=== PATIENT | female | born 1945 | race Caucasian/White ===

== ENCOUNTER 2017-02-18 01:55 | Observation (INO) | payer MEDICARE, OTHER ==
[~2017-02-18] VITALS: Ht 162.6 cm; Wt 69.9 kg
[2017-02-18 02:51] LABS: ALBUMIN 3.7 g/dL (3.4-5.0); ALKALINE PHOSPHATASE 92 U/L (46-116); ALT (SGPT) 24 U/L (10-68); BILIRUBIN - TOTAL 0.27 mg/dL (0.2-1.3); CALC OSMOLALITY 289 mosm/kg (275-300); CALCIUM 8.6 mg/dL (8.5-10.1); CHLORIDE - SERUM 104 mmol/L (98-107); CREATININE - SERUM 1.8 mg/dL (0.6-1.3); GLUCOSE 106 mg/dL (74-106); POTASSIUM - SERUM 3.5 mmol/L (3.5-5.1); PROTEIN - SERUM 7.3 g/dL (6.4-8.2); SODIUM 143 mmol/L (136-145); UREA NITROGEN 26 mg/dL (7-18); eGFR NON AFRICAN AMERICAN 29 mL/min (90-120)
[2017-02-18 02:56] LABS: BASOPHILS 0.4 % (0-2); EOSINOPHILS 0.7 % (0-7); HEMATOCRIT 39.3 % (36.0-48.0); HEMOGLOBIN 12.9 g/dL (12-16); IMMATURE GRANULOCYTES 0.3 % (0-5); LYMPHOCYTES 14.6 % (15-50); MCH 28.8 pg (26.0-34.0); MCHC 32.8 g/dL (31.0-37.0); MCV 87.7 fL (80.0-100.0); MEAN PLATELET VOLUME 10.2 fL (7.4-10.4); MONOCYTES 13.8 % (2-11); NEUTROPHILS 70.2 % (40-80); PLATELET COUNT 189 10x3/uL (130-400); RBC 4.48 10x6/uL (4.00-5.40); WBC 6.7 10x3/uL (4.8-10.8)
[2017-02-18 02:58] LABS: PRO BNP 167 pg/mL (0-125); TROPONIN-I < 0.017 ng/mL (0.000-0.060)
[2017-02-18 04:00] VITALS: BP 133/58
[2017-02-18] MEDS ORDERED: PRAVACHOL80 MG PO (04:32)
[2017-02-18] MEDS ORDERED: LEVOTHYROXINE75 MCG PO (04:33)
[2017-02-18] MEDS ORDERED: BUPROPION HCL75 MG PO (04:33)
[2017-02-18] MEDS ORDERED: PROTONIX40 MG PO (04:34)
[2017-02-18] MEDS ORDERED: NORVASC10 MG PO (04:35)
[2017-02-18] MEDS ORDERED: COZAAR100 MG PO (04:36)
[2017-02-18] MEDS ORDERED: MIRAPEX1 MG PO (04:37)
[2017-02-18] MEDS ORDERED: BAYER CHEWABLE81 MG PO (04:38)
[2017-02-18 05:31] VITALS: BP 129/53; BMI 26.5
[2017-02-18 09:37] VITALS: BP 134/58
[2017-02-18 11:59] VITALS: BP 132/60
[2017-02-18 16:12] VITALS: BP 151/52
[2017-02-18 20:00] VITALS: BP 134/49
[2017-02-19] VITALS: BP 148/58
[2017-02-19 04:00] VITALS: BP 159/59
[2017-02-19 08:09] VITALS: BP 141/54
[2017-02-19 12:03] VITALS: BP 129/55
[2017-02-19 14:37] VITALS: Ht 162.6 cm; Wt 69.9 kg
[2017-02-19] MEDS ORDERED: STERAPRED DS 1010 MG PO (16:03)
[2017-02-19] MEDS ORDERED: GUAIFENESI100 MG/5 M PO (16:04)
[2017-02-19 16:10] VITALS: BP 126/59
== END 2017-02-19 19:24 | disposition home or self-care (01) ==
LOC: D.ER 01:55 → D.MS 03:38 → OBSVTIME 03:38 → D.MS 03:38
PROVIDERS: Family Medicine
DX: J44.1 Chronic obstructive pulmonary disease with (acute) exacerbation (principal); I10 Essential (primary) hypertension; K21.9 Gastro-esophageal reflux disease without esophagitis; G25.0 Essential tremor; E78.5 Hyperlipidemia, unspecified; F32.89 Other specified depressive episodes

== ENCOUNTER 2018-09-20 17:19 | Inpatient (IN) | payer MEDICARE, OTHER ==
[~2018-09-20] VITALS: Ht 162.6 cm; Wt 72.3 kg
[~2018-09-20 17:19] MED LIST: BAYER CHEWABLE81 MG PO; BUPROPION HCL75 MG PO; COZAAR100 MG PO; GUAIFENESI100 MG/5 M PO; LEVOTHYROXINE75 MCG PO; MIRAPEX1 MG PO; NORVASC10 MG PO; PRAVACHOL80 MG PO; PROTONIX40 MG PO; STERAPRED DS 1010 MG PO
[2018-09-20] MEDS ORDERED: BUPROPION HCL75 MG PO (17:25)
[2018-09-20] MEDS ORDERED: CHLORTHALIDONE50 MG PO (17:25)
--- NOTE | 2018-09-20 20:32 | NUR ---
PT TO RADIOLOGY.
[2018-09-20 20:42] LABS: BASOPHILS 0.4 % (0-2); EOSINOPHILS 1.1 % (0-7); HEMATOCRIT 34.5 % (36.0-48.0); HEMOGLOBIN 11.3 g/dL (12-16); IMMATURE GRANULOCYTES 0.3 % (0-5); LYMPHOCYTES 16.2 % (15-50); MCH 29.1 pg (26.0-34.0); MCHC 32.8 g/dL (31.0-37.0); MCV 88.9 fL (80.0-100.0); MEAN PLATELET VOLUME 9.7 fL (7.4-10.4); MONOCYTES 8.1 % (2-11); NEUTROPHILS 73.9 % (40-80); PLATELET COUNT 195 10x3/uL (130-400); RBC 3.88 10x6/uL (4.00-5.40); RDW 14.4 % (11.5-14.5); WBC 11.1 10x3/uL (4.8-10.8)
--- NOTE | 2018-09-20 20:46 | NUR ---
PT RETURNED FROM RADIOLOGY.
[2018-09-20 20:58] LABS: ALBUMIN 3.7 g/dL (3.4-5.0); ANION GAP 11.2 mmol/L (8-16); BILIRUBIN - TOTAL 0.5 mg/dL (0.2-1.3); CARBON DIOXIDE 27.5 mmol/L (21.0-32.0); CREATININE - SERUM 1.7 mg/dL (0.6-1.3); POTASSIUM - SERUM 3.7 mmol/L (3.5-5.1); PROTEIN - SERUM 6.8 g/dL (6.4-8.2)
[2018-09-20 21:06] LABS: APTT 25.5 SECONDS (22.8-39.4); INR 1.02 (0.85-1.17); PROTIME 12.9 SECONDS (11.6-15.0)
--- NOTE | 2018-09-20 21:35 | NUR ---
PT ASSISTED IN USING BEDPAN.
--- NOTE | 2018-09-20 22:48 | NUR ---
KNEE IMMOBILIZER PLACED ON PT'S LEFT KNEE. PT TOLERATED WELL.
--- NOTE | 2018-09-20 23:02 | NUR ---
PT GIVEN SANDWICH AND ICE WATER. DENIES ANY FURTHER NEEDS AT THIS TIME. WILL CONTINUE TO MONITOR.
[2018-09-20] MEDS ORDERED: HYDROCODONE-A1 UDTA2 PO (23:51)
[2018-09-20 23:53] VITALS: BP 138/63; Ht 162.6 cm; Wt 72.3 kg
--- NOTE | 2018-09-21 04:21 | NUR ---
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 AFTER ONE HOUR OF NO RELIEF WE CALL [facility] FOR DR MARTINEZ AND SHE DC'D THE MORPHINE BLOCKING MACHINE OPERATOR AND ORDERED DILAUDID IV EVERY 6 HRS. WHEN THIS WAS TOLD TO THE PATIENT SHE STATED THAT THE MORPHINE HAD FINALLY KICKED IN AND SHE WAS DOING BETTER AND DID NOT WANT TO CHANGE HER MEDS AT THIS TIME. WILL LET THE MD KNOW IN THE AM.
[2018-09-21 08:09] LABS: ALBUMIN 3.4 g/dL (3.4-5.0); ANION GAP 16.4 mmol/L (8-16); BILIRUBIN - TOTAL 0.73 mg/dL (0.2-1.3); CALCIUM 8.7 mg/dL (8.5-10.1); CARBON DIOXIDE 21.8 mmol/L (21.0-32.0); CREATININE - SERUM 1.4 mg/dL (0.6-1.3); POTASSIUM - SERUM 4.2 mmol/L (3.5-5.1); PROTEIN - SERUM 6.6 g/dL (6.4-8.2)
[2018-09-21 08:46] LABS: BASOPHILS 0.2 % (0-2); EOSINOPHILS 0.7 % (0-7); HEMATOCRIT 33.4 % (36.0-48.0); HEMOGLOBIN 10.9 g/dL (12-16); IMMATURE GRANULOCYTES 0.2 % (0-5); LYMPHOCYTES 15.5 % (15-50); MCH 28.8 pg (26.0-34.0); MCHC 32.6 g/dL (31.0-37.0); MCV 88.1 fL (80.0-100.0); MONOCYTES 10.7 % (2-11); NEUTROPHILS 72.7 % (40-80); PLATELET COUNT 192 10x3/uL (130-400); RBC 3.79 10x6/uL (4.00-5.40); RDW 14.3 % (11.5-14.5); WBC 8.9 10x3/uL (4.8-10.8)
[2018-09-21 10:25] VITALS: BP 129/50
[2018-09-21 13:14] VITALS: BP 124/48
[2018-09-21 17:32] VITALS: BP 120/50
--- NOTE | 2018-09-21 21:30 | NUR ---
RECEIVED PT FROM OR VIA STRETCHER. DROWSY. RESP EVEN AND NONLABORED. O2 @ 3LNC. BED ALARM ON FOR PT SAFETY. DRSG NOTED TO LLE WITH IMMOBILIZER IN USE. LT PEDAL PULSE WEAKER THATN RT. 1/2 NS @ 50 ML/HR INFUSINGIN RT WRIST. MORPHINE COIL BINDER IN USE. V/S STABLE. SR ELEVATED X2. CL IN REACH.
[2018-09-21 21:33] VITALS: BP 118/68
[2018-09-22 01:14] VITALS: BP 109/63
--- NOTE | 2018-09-22 02:00 | NUR ---
ASSISTED ONTO BEDPAN TO VOID. DOING WELL. USED RN FAMILY FOR C/O PAIN IN LLE. V/S STABLE. RESP EVEN AND NONLABORED. BED ALARM IN USE FOR PT SAFETY. CL IN REACH.
[2018-09-22 05:16] VITALS: BP 114/54
--- NOTE | 2018-09-22 05:58 | NUR ---
TOOK AM MEDS. TALKATIVE WITH STAFF. DENIES PAIN AT THIS TIME. NO DISTRESS. CL IN REACH.
[2018-09-22 06:59] LABS: BASOPHILS 0 % (0-2); EOSINOPHILS 0 % (0-7); HEMATOCRIT 31.3 % (36.0-48.0); HEMOGLOBIN 10.1 g/dL (12-16); IMMATURE GRANULOCYTES 0.2 % (0-5); LYMPHOCYTES 5.8 % (15-50); MCH 28.8 pg (26.0-34.0); MCHC 32.3 g/dL (31.0-37.0); MCV 89.2 fL (80.0-100.0); MEAN PLATELET VOLUME 10.2 fL (7.4-10.4); MONOCYTES 8.7 % (2-11); NEUTROPHILS 85.3 % (40-80); PLATELET COUNT 200 10x3/uL (130-400); RBC 3.51 10x6/uL (4.00-5.40); RDW 14.5 % (11.5-14.5); WBC 9.4 10x3/uL (4.8-10.8)
--- NOTE | 2018-09-22 07:01 | OP ---
PATIENT NAME: SETH MAXWELL MEDICAL RECORD: [id number] :43 LOCATION:D.MS [id number] ADMISSION DATE:09/20/18 SURGEON: SELVIN COLÓN DO DATE OF OPERATION: 09/21/2018 PROCEDURE PERFORMED: Left lateral tibial plateau open reduction internal fixation. PREOPERATIVE DIAGNOSIS: Displaced split depression of the left lateral tibial plateau. POSTOPERATIVE DIAGNOSIS: Displaced split depression of the left lateral tibial plateau. INDICATIONS: Ms. Maxwell is a 72-year-old female who was cleaning her ceiling fan from her bed. She slipped and fell and sustained a tibial plateau fracture. She was [facility] and she was aware of the risks of this including infection, bleeding, damage to nerves and vessels, failure of fixation, malunion, nonunion, and continued knee pain. She is also aware of the fact that she may most likely need a knee replacement due to the traumatic nature of this to the joint line. She was aware that as well as the risk of blood clots and even and signed the consent. SURGEON: Selvin Colón DO PROCEDURE: The patient was taken to the operative suite, laid in supine position, given general anesthetic and 2 grams of Ancef preoperatively. The left lower extremity was then prepped and draped in sterile fashion. Tourniquet was under the drapes. A timeout was performed and everyone was agreeance with the correct side, site, patient and procedure. The Esmarch was then used to exsanguinate the left lower extremity. The tourniquet was inflated to 350 mmHg, was up for 70 minutes. The incision then began over the lateral aspect of the tibia in a hockey stick type incision and careful dissection was made down to the IT band. The IT band was split and the tibia was cleaned off for a place for the plate. Reduction was made and tamp was used to tamp up the depressed part of the tibial plateau on the lateral side. Once this was completed, the plate was placed, and once he is in satisfactory position, AP and lateral screws were entered first a kickstand screw and then proximal screws and then more distal screws and the kickstand screw was replaced for a locking screw. This was confirmed to be in good position on AP and lateral x-ray. The tourniquet was then let down and bleeding was coagulated. The incision was then closed. The deep tissue, fascia was closed with #1 Vicryl in a [id number] fashion and then the skin was closed with 2-0 Vicryl in inverted interrupted fashion and ZipLine was placed on the knee. Adaptic, 4 x 4s, ABD, Webril, and Luis Angel wrap was then used to dress the wound. A EDDIE hose stocking up to the knee and the knee immobilizer placed on the patient. She was awakened and taken to recovery in stable condition. Blood loss approximately 100 mL. COMPLICATIONS: None. TRANSINT:[id number] Voice Confirmation ID: [id number] DOCUMENT ID: [id number] OPERATIVE REPORT [id number] SETH MAXWELL,SELVIN Madrigal DO at 0701 CC: [id number] DICTATION DATE: 09/21/182041 REGIONAL TANKER TRUCK DRIVER: 09/21/18 2315 ADM IN [facility] [address] [place] [address]
[2018-09-22 07:33] LABS: ALBUMIN 2.8 g/dL (3.4-5.0); ANION GAP 13.8 mmol/L (8-16); BILIRUBIN - TOTAL 0.61 mg/dL (0.2-1.3); CALCIUM 8.2 mg/dL (8.5-10.1); CARBON DIOXIDE 25.8 mmol/L (21.0-32.0); CREATININE - SERUM 1.5 mg/dL (0.6-1.3); POTASSIUM - SERUM 4.6 mmol/L (3.5-5.1)
--- NOTE | 2018-09-22 08:11 | NUR ---
PT RESTING IN BED. WATCHING TV. PAIN 2/10. ECONOMICS TEACHER EDUCATION DONE. NO S/S OF ACUTE DISTRESS. CL IN PLACE.
[2018-09-22 08:16] VITALS: BP 115/34
[2018-09-22 12:49] VITALS: BP 97/38
[2018-09-22 16:41] VITALS: BP 128/78
--- NOTE | 2018-09-22 18:18 | NUR ---
PT RESTING IN BED. CO OF PAIN 10/10. OXY 10 MG GIVEN FOR PAIN. NO S/S OF ACUTE DISTRESS. CL IN PLACE.
--- NOTE | 2018-09-22 18:19 | NUR ---
MEPILEX APPLIED TO L BUTTOCK. RED SMALL SCRATCHES NOTED. "I SCRATCHED MY BOTTOM".
--- NOTE | 2018-09-22 19:15 | NUR ---
PT ALERT AND ORIENTED WHEN ENTERING THE ROOM. LEFT LOWER LEG WITH CAST AND IMMOBILIZER. IN PLACE. PILLOW UNDER AND STABLIZED. STATES PAIN IS TOLERABLE AT THIS TIME. HAS LEFT WRIST IV THAT IS PATENT AND INFUSING 0.45 NS ORDERED. ASSISTED WITH BED CHOI. PT HAS TRAPEZE BAR AND USES WELL. DENIES FURTHER ISSUES. CPOC
[2018-09-22 20:00] VITALS: BP 116/42
[2018-09-23] VITALS: BP 102/48
--- NOTE | 2018-09-23 00:47 | NUR ---
SLIGHT INCREASE IN FEVER AT 99.4. PROVIDED INCENTIVE SPIROMETER PER DR. COLÓN STANDING ORDER. INSTRUCTED PATIENT TO USE SEVERAL TIMES WITHIN HOUR TO PROMOTE DEEP BREATHING AND DECREASE IN BODY TEMPERATURE. PATIENT PERFORMS FOR THIS NURSE AND DOES SO EFFECTIVELY.
--- NOTE | 2018-09-23 02:02 | NUR ---
PT TEMPERATURE NOW 98.9. INCENTIVE SPIROMETER REMAINS AT BEDSIDE AND ENCOURAGED PATIENT TO CONTINUE TO USE THROUGH OUT DAY TO PROMOTE FEVER PROPHYLAXIS. PATIENT VERBALIZES UNDERSTANDING.
--- NOTE | 2018-09-23 03:41 | NUR ---
I have reviewed this patient and I concur with the Shift Assessment completed by the Licensed Practical Nurse today this shift.
[2018-09-23 04:00] VITALS: BP 100/46
[2018-09-23 06:12] LABS: BASOPHILS 0.2 % (0-2); EOSINOPHILS 1.1 % (0-7); HEMATOCRIT 27.8 % (36.0-48.0); IMMATURE GRANULOCYTES 0.5 % (0-5); LYMPHOCYTES 13.9 % (15-50); MCH 28.9 pg (26.0-34.0); MCHC 32.4 g/dL (31.0-37.0); MCV 89.4 fL (80.0-100.0); MEAN PLATELET VOLUME 10.2 fL (7.4-10.4); MONOCYTES 11.2 % (2-11); NEUTROPHILS 73.1 % (40-80); PLATELET COUNT 182 10x3/uL (130-400); RBC 3.11 10x6/uL (4.00-5.40); RDW 14.4 % (11.5-14.5); WBC 9.7 10x3/uL (4.8-10.8)
[2018-09-23 06:45] LABS: ALBUMIN 2.6 g/dL (3.4-5.0); BILIRUBIN - TOTAL 0.48 mg/dL (0.2-1.3); CALCIUM 7.5 mg/dL (8.5-10.1); CARBON DIOXIDE 28.3 mmol/L (21.0-32.0); CREATININE - SERUM 1.4 mg/dL (0.6-1.3); PROTEIN - SERUM 5.7 g/dL (6.4-8.2)
[2018-09-23 06:48] LABS: ANION GAP 9.2 mmol/L (8-16); POTASSIUM - SERUM 3.5 mmol/L (3.5-5.1)
--- NOTE | 2018-09-23 07:45 | NUR ---
ALERT AND ORIENTED. LUNGS CLEAR BILATERALLY IN ALL MOLINA. HEART SOUNDS S1 AND S2 HEARD IN ALL MOLINA. BOWEL SOUNDS SLUGGISH X 4. IMMOBILIZER IN PLACE TO LLE. DENIES PAIN. DENIES NEEDS. BED LOW. FALL PRECAUTIONS IN PLACE. CALL ARENAS AND PERSONAL ITEMS INREACH. WILL CONTINUE TO MONITOR.
[2018-09-23 08:20] VITALS: BP 105/70
--- NOTE | 2018-09-23 08:31 | NUR ---
Unknown reason for wound consult. Pt is p/o L tibial ORIF (09/21) and is being managed by Ortho.
--- NOTE | 2018-09-23 09:46 | NUR ---
PT W NO BM IN 3 DAYS. REFUSED MIRALAX.
--- NOTE | 2018-09-23 10:21 | NUR ---
MEPILEX APPLIED TO LEFT OUTTER KNEE INCISION PER DRSG CHANGE ORDER. NICHOLAS WRAP APPLIED. NEW BRACE PLACED ON LLE PER ORDER.
[2018-09-23 12:31] LABS: % SATURATION 8 % (15-55); IRON 15 ug/dl (35-150); TOTAL IRON BIND CAPACITY 182 ug/dl (260-445); UNSAT IRON BIND CAPACITY 167 ug/dl (150-375)
--- NOTE | 2018-09-23 12:31 | NUR ---
EDUCATION PROVIDED ON NEED FOR URINE AND STOOL SAMPLE. VERBALIZED UNDERSTANDING. SUPPLIES IN ROOM.
[2018-09-23 12:39] VITALS: BP 108/46
--- NOTE | 2018-09-23 13:31 | NUR ---
PATIENT SLEEPING. WILL CONTINUE TO MONITOR.
--- NOTE | 2018-09-23 13:57 | NUR ---
Rehab Note- Acute Inpatient Rehab prescreen order received. Visited with the patient. She is in agreeance with [facility] Acute Inpatient Rehab prior to being discharged home. Will accept the patient to [facility] Acute Inpatient Rehab when medically stable and ready for discharge form the acute hospital. Spoke with MARY ANN Morgan. Thank you for this referral! Gabriela Ledesma RN Clinical Liaison, [facility] Rehab
--- NOTE | 2018-09-23 15:14 | NUR ---
PATIENT SLEEPING. WILL CONTINUE TO MONITOR.
[2018-09-23 15:58] LABS: APPEARANCE CLEAR (CLEAR); BILIRUBIN NEGATIVE (NEGATIVE); COLOR YELLOW (YELLOW); GLUCOSE NEGATIVE (NEGATIVE); KETONE NEGATIVE (NEGATIVE); NITRITE NEGATIVE (NEGATIVE); PROTEIN NEGATIVE (NEGATIVE); RED CELLS - URINE 0-5 /hpf (0-5); UROBILINOGEN NORMAL (NORMAL); WHITE CELLS - URINE OCC /hpf (0-5)
[2018-09-23 15:59] LABS: BACTERIA FEW /hpf (NONE SEEN)
[2018-09-23 17:15] VITALS: BP 135/52
--- NOTE | 2018-09-23 19:45 | NUR ---
PT SITTING UP IN BED WITHOUT DISTRESS, ALERT AND ORIENTED. IV LEFT WRIST INFUSING 1/2NS @ 50. LEFT LEG IN BRACE, DRESSING CDI. DENIES PAIN. FALL PRECAUTIONS IN PLACE, BED ALARM ON. DENIES NEEDS AT THIS TIME. CL IN REACH, WILL CTM
[2018-09-23 20:00] VITALS: BP 148/52
[2018-09-24] VITALS: BP 144/46
--- NOTE | 2018-09-24 01:40 | NUR ---
PT REQUESTED PAIN MEDICINE FOR "THROBBING" PAIN 8/10 IN LEFT LEG. GAVE OXY ORDERED. DENIES OTHER NEEDS. CL IN REACH, WILL CTM
[2018-09-24 04:00] VITALS: BP 137/71
--- NOTE | 2018-09-24 05:45 | NUR ---
ASSISTED PT ON AND OFF BEDPAN WITHOUT DIFFICULTY. PT ABLE TO LIFT BOTTOM UP BY SELF. DENIES PAIN OR NEEDS AT THIS TIME. CL IN REACH, WILL CTM
[2018-09-24 06:55] LABS: ALBUMIN 2.4 g/dL (3.4-5.0); ANION GAP 11.2 mmol/L (8-16); BILIRUBIN - TOTAL 0.63 mg/dL (0.2-1.3); CALCIUM 7.6 mg/dL (8.5-10.1); CREATININE - SERUM 1.4 mg/dL (0.6-1.3); POTASSIUM - SERUM 3.2 mmol/L (3.5-5.1); PROTEIN - SERUM 5.8 g/dL (6.4-8.2)
[2018-09-24 07:10] LABS: HEMATOCRIT 27.1 % (36.0-48.0); HEMOGLOBIN 9.3 g/dL (12-16); LYMPHOCYTES 16.3 % (15-50); MCH 30.4 pg (26.0-34.0); MCHC 34.3 g/dL (31.0-37.0); MCV 88.6 fL (80.0-100.0); MEAN PLATELET VOLUME 10.1 fL (7.4-10.4); NEUTROPHILS 73.2 % (40-80); PLATELET COUNT 196 10x3/uL (130-400); RBC 3.06 10x6/uL (4.00-5.40); RDW 13.6 % (11.5-14.5); WBC 8.5 10x3/uL (4.8-10.8)
--- NOTE | 2018-09-24 07:53 | NUR ---
ALERT AND ORIENTED. LUNGS CLEAR BILATERALLY IN ALL MOLINA. HEART SOUNDS S1 AND S2 HEARD IN ALL MOLINA. BOWEL SOUNDS ACTIVE X 4. SKIN INTACT WITHOUT REDNESS. DRSG INTACT WITH NICHOLAS WRAP TO LEFT LEG. BRACE IN PLACE TO LEFT LEG LOCKED AT 0/0. DENIES PAIN. DENIES NEEDS. BED LOW. FALL PRECAUTIONS IN PLACE. CALL ARENAS AND PERSONAL ITEMS IN REACH. WILL CONTINUE TO MONITOR.
[2018-09-24 08:48] VITALS: BP 112/64
[2018-09-24] MEDS ORDERED: ELIQUIS2.5 MG PO (08:57)
[2018-09-24] MEDS ORDERED: MIRALAX17 GM PO (08:58)
--- NOTE | 2018-09-24 09:40 | MORECARE ---
CASE MANAGEMENT DISCHARGE SUMMARY PATIENT: SETH MAXWELL UNIT: [id number] ADM DATE: 09/20/18 AGE: 72 : 44 SEX: F ROOM/BED: D.2211 AUTHOR: VANESSA DSOUZA PHYSICIAN: REFERRING PHYSICIAN: LUCIA MARTINEZ MD DATE OF SERVICE: 09/24/18 Discharge Plan Patient Name: SETH MAXWELL [facility] [facility] 1945 Planned Disposition: Inpatient Rehab Anticipated Discharge Date: Discharge Date: Expected LOS: Initial Reviewer: [email or web address] Initial Review Date: 09/20/2018 Generated: 09/24/18 10:40 am Patient Name: SETH MAXWELL Page [phone] at 0940 All edits/amendments must be made on the electronic document DICTATION DATE: 09/24/18938 WARP DYEING VAT TENDER: MIHAELA 09/24/18938 RPT#: [id number] DC DATE: STATUS: ADM IN [facility] [address] [place] [address] END OF REPORT
--- NOTE | 2018-09-24 09:48 | MORECARE ---
CASE MANAGEMENT DISCHARGE SUMMARY PATIENT: SETH MAXWELL UNIT: [id number] ADM DATE: 09/20/18 AGE: 72 : 44 SEX: F ROOM/BED: D.2211 AUTHOR: LIANNADOC PHYSICIAN: REFERRING PHYSICIAN: LUCIA MARTINEZ MD DATE OF SERVICE: 09/24/18 Discharge Plan Patient Name: SETH MAXWELL Facility: [facility]:[place] : 1945 Planned Disposition: Inpatient Rehab Anticipated Discharge Date: Discharge Date: Expected LOS: Initial Reviewer: [email or web address] Initial Review Date: 09/20/2018 Generated: 09/24/18 10:48 am Comments DCP- Discharge Planning Updated by [email or web address]: Darline Klein on 09/24/18 8:[address] Patient Name: SETH MAXWELL Admission Status: ER Accout number: [id number] Admission Date: 09-20-2018 : 1945 Admission Diagnosis: Attending: LUCIA MARTINEZ Current LOS: 4 Anticipated DC Date: Planned Disposition: Inpatient Rehab Primary Insurance: MEDICARE A & B Discharge Planning Comments: CM met with patient to complete initial dc planning assessment. CM educated patient on the CM role and verbal consent given by patient to complete assessment. Patient lives at home where she lives alone and states that she is independent with her care . At discharge patient plans to go to inpatient rehab at [facility] and feels this is a safe discharge. CM discussed availability of home health, rehab services, and medical equipment. She has a walker at home and a boot for her lymphedema. Patient denied known discharge needs at this time. IMM served and explained, copy given to her. CM will continue to follow and will assist as needed with dc plans/needs. Transplanter: Darline Klein DCPIA - Discharge Planning Initial Assessment Updated by [email or web address]: Darline Klein on 09/24/18 9:41 am * Is the patient Alert and Oriented? Yes * How many steps to enter\exit or inside your home? * PCP [facility] * Pharmacy [facility] * Preadmission Environment Home Alone * ADLs Independent * Equipment Rolling Walker * Other Equipment SIMMONS T FOR LYMPHEDEMA * Verbal permission to speak to the caregivers and representatives has been obtained from the patient. N/A * Community resources currently utilized None * Additional services required to return to the preadmission environment? Yes * Can the patient safely return to the preadmission environment? Yes * Has this patient been hospitalized within the prior 30 days at any hospital? No Coverage Notice Reviewer: [email or web address] Noah Gregorio Ernie Notice Issued Date-Time: 09/24/2018 9:35 Notice Type: IM Discharge Notice Notice Delivered To: Patient Relationship to Patient: Assistant Professor Of Biochemistry Name: Delivery Method: HAND - Hand Delivered Tova Days: Prior Verbal Notification: Recipient Understood Notice: Yes Recipient Signature: Yes Med Rec Note Co-signed by Attending: Coverage Notice Comment: Last DP export: 09/24/18 8:40 a Patient Name: SETH MAXWELL Page [phone] at 0948 All edits/amendments must be made on the electronic document DICTATION DATE: 09/24/18947 DAY CARE HOME MOTHER: MIHAELA 09/24/18947 RPT#: [id number] DC DATE: STATUS: ADM IN [facility] [address] [place] [address] END OF REPORT
--- NOTE | 2018-09-24 09:55 | NUR ---
RESTING IN BED. DENIES PAIN. DENIES NEEDS. WILL CONTIUE TO MONITOR.
--- NOTE | 2018-09-24 10:45 | NUR ---
DISCHARGE EDUCATION PROVIDED BOTH WRITTEN AND VERBAL. VERBALIZED UNDERSTANDING. DENIES FURTHER QUESTIONS. WAITING FOR BED IN INPATIENT REHAB. WILL CALL REPORT WHEN BED AVAILABLE.
--- NOTE | 2018-09-24 12:51 | NUR ---
REPORT CALLED TO AUTO BODY MECHANIC. DENIES FURTHER QUESTIONS. IV REMOVED FROM LFA WITH TIP INTACT. PATIENT DISCHARGED TO REHAB WITH ALL BELONGINGS.
== END 2018-09-24 14:12 | DRG 493 ==
LOC: D.ER 17:19 → D.MS 21:44 → D.SDCHOLD 09-23 08:48 → D.MS 09-23 08:50
PROVIDERS: Emergency Medicine; Family Medicine; Internal Medicine Nephrology; Orthopaedic Surgery; ADMIT Family Medicine; ATTEND Family Medicine
PROC: 0QSH04Z Reposition Left Tibia with Internal Fixation Device, Open Approach (ICD-10-PCS; principal; 2018-09-21 19:21)
DX: S82.142A Displaced bicondylar fracture of left tibia, initial encounter for closed fracture (principal); D62 Acute posthemorrhagic anemia; W06.XXXA Fall from bed, initial encounter; Y93.E9 Activity, other interior property and clothing maintenance; Y92.003 Bedroom of unspecified non-institutional (private) residence as the place of occurrence of the external cause; I10 Essential (primary) hypertension; I25.10 Atherosclerotic heart disease of native coronary artery without angina pectoris; J44.9 Chronic obstructive pulmonary disease, unspecified; K21.9 Gastro-esophageal reflux disease without esophagitis

== ENCOUNTER 2018-09-24 15:22 | Inpatient (IN) | payer MEDICARE, OTHER ==
[~2018-09-24] VITALS: Ht 162.6 cm; Wt 70.8 kg
[~2018-09-24 15:22] MED LIST changes: +CHLORTHALIDONE50 MG PO; +ELIQUIS2.5 MG PO; +HYDROCODONE-A1 UDTA2 PO; +MIRALAX17 GM PO
--- NOTE | 2018-09-24 17:00 | NUR ---
PT HAS BRACE FOR LLE. SHE HAS PEDAL PULSES X2. SHE IS ALERT AND ORIENTED. STATES SHE HURT HER RLE WHEN SHE WAS YOUNG AND HER FOOT TURNS IN DUE TO THAT ACCIDENT.
[2018-09-24 17:07] VITALS: BP 151/67; BMI 26.8
--- NOTE | 2018-09-24 20:10 | NUR ---
GREETED PATIENT AND INTRODUCED MYSELF. PATIENT IS LAYING IN BED WITH BRACE ON LEFT LEG AND LEG ELEVATED ON PILLOW. STATES THAT HER PAIN LEVEL IS STILL A 5/10. DENIES ANY FURTHER NEEDS AT THIS TIME. CALL LIGHT IN REACH.
[2018-09-24 21:10] VITALS: BP 134/56
--- NOTE | 2018-09-25 03:16 | NUR ---
PATIENT RESTING QUIETLY WITH EYES CLOSED. RESPIRATIONS EVEN. NO S/S OF DISTRESS. SR UP X2. BED IN LOWEST POSITION. CALL LIGHT IN REACH.
[2018-09-25 07:37] LABS: BASOPHILS 0.5 % (0-2); EOSINOPHILS 2.3 % (0-7); HEMATOCRIT 27.2 % (36.0-48.0); HEMOGLOBIN 9.2 g/dL (12-16); IMMATURE GRANULOCYTES 0.2 % (0-5); LYMPHOCYTES 15.5 % (15-50); MCH 29.6 pg (26.0-34.0); MCHC 33.8 g/dL (31.0-37.0); MCV 87.5 fL (80.0-100.0); MEAN PLATELET VOLUME 9.8 fL (7.4-10.4); MONOCYTES 10.2 % (2-11); NEUTROPHILS 71.3 % (40-80); PLATELET COUNT 242 10x3/uL (130-400); RBC 3.11 10x6/uL (4.00-5.40); RDW 14.2 % (11.5-14.5); WBC 8.3 10x3/uL (4.8-10.8)
[2018-09-25 07:42] VITALS: BP 121/51
--- NOTE | 2018-09-25 07:43 | NUR ---
ALERT AND ORIENTED. BREAKFAST SERVED. CL IN REACH.
[2018-09-25 07:58] LABS: ANION GAP 13.2 mmol/L (8-16); CALCIUM 7.9 mg/dL (8.5-10.1); CARBON DIOXIDE 26.4 mmol/L (21.0-32.0); CREATININE - SERUM 1.3 mg/dL (0.6-1.3); POTASSIUM - SERUM 3.6 mmol/L (3.5-5.1)
[2018-09-25 10:47] VITALS: Ht 162.6 cm; Wt 70.8 kg
--- NOTE | 2018-09-25 12:18 | NUR ---
RESTING IN BED. RESP EVEN ADN UNLABORED. CL IN REACH.
--- NOTE | 2018-09-25 13:26 | NUR ---
SHOWER TODAY PER OT.
--- NOTE | 2018-09-25 16:26 | NUR ---
NO CHANGE IN ASSESSMENT. NO C/O PAIN. CL IN REACH.
--- NOTE | 2018-09-25 19:55 | NUR ---
ASSISTED FROM WHEELCHAIR TO BED. CL IN REACH. PT PREFORMED ORAL CARE BEFORE BED. DENIES FURTHER NEEDS AT THIS TIME. BED IN LOW SIDE RAILS X2. LUNGS CLEAR. BOWEL ACTIVE X4. PT SITTING UP IN BED. WILL CONTINUE TO MONITOR.
[2018-09-25 20:58] VITALS: BP 127/47
--- NOTE | 2018-09-25 23:27 | NUR ---
I have reviewed this patient and I concur with the Shift Assessment completed by the Licensed Practical Nurse today this shift.
--- NOTE | 2018-09-26 01:31 | NUR ---
PT COMPLAINING OF BACK OF LEFT ANKLE HURTING AND THIS NURSE PUT A ICE PACK ON IT AND PROPED IT UP OFF THE BED WITH A PILLOW AND PT GIVEN PAIN PILL PER MAR. WILL CONTINUE TO MONITOR. CALL LIGHT IN REACH.
[2018-09-26 07:27] VITALS: BP 112/52
--- NOTE | 2018-09-26 08:15 | NUR ---
PT RESTING IN BED WITH EYES OPEN CALL LIGHT IN REACH NO PROBLEMS WILL MONITER
--- NOTE | 2018-09-26 11:55 | NUR ---
ASSISTED PATIENT TO BATHROOM USING WHEELCHAIR. PATIENT BACK TO BED AND REPOSITIONED FOR COMFORT. CALL LIGHT IN REACH.
--- NOTE | 2018-09-26 18:26 | NUR ---
I have reviewed this patient and I concur with the Shift Assessment completed by the Licensed Practical Nurse today this shift.
--- NOTE | 2018-09-26 18:36 | NUR ---
PT RESTING IN BED WITH EYES OPEN CALL LIGHT IN REACH NO PROBLEMS WILL MONITER
--- NOTE | 2018-09-26 19:38 | NUR ---
ASSISTED TO AND FROM BATHROOM BY WHEELCHAIR. CL IN REACH. A/O X4. RESP EVEN AND UNLABORED. LUNGS CLEAR. BOWEL ACTIVE X4. DENIES FURTHER NEEDS OR PAIN AT THIS TIME. BRACE ON LEFT KNEE INTACT. PT BACK IN BED. LEFT LEG ELEVATED ON PILLOW. WILL CONTINUE TO MONITOR.
[2018-09-26 20:38] VITALS: BP 130/58
--- NOTE | 2018-09-26 21:29 | NUR ---
ASSISTED TO THE BATHROOM AGAIN DUE TO UPSET STOMACH AND PASSING GAS. PT HAD LOOSE BM. PT ADMITS TO FEELING BETTER. PT BACK IN BED. DENIES FURTHER NEEDS. WCTM CL IN REACH
--- NOTE | 2018-09-26 22:28 | NUR ---
ASSISTED TO BATHROOM. PT STILL COMPLAINING OF LOOSE STOOLS. BM NOTED. PT ASSISTED BACK TO BED. CL IN REACH DENIES FURTHER NEEDS. WCTM
--- NOTE | 2018-09-26 23:04 | NUR ---
RECEIVED REPORT FROM OFFGOING NURSE ON PATIENTS CONDITION.
--- NOTE | 2018-09-26 23:10 | NUR ---
I have reviewed this patient and I concur with the Shift Assessment completed by the Licensed Practical Nurse today this shift.
--- NOTE | 2018-09-27 03:12 | NUR ---
PATIENT RESTING QUIETLY WITH EYES CLOSED. LEFT LEG ELEVATED ON PILLOW FOR COMFORT MEASURES. RESPIRATIONS EVEN. NO S/S OF DISTRESS. CALL LIGHT IN REACH.
[2018-09-27 07:29] LABS: BASOPHILS 0.4 % (0-2); EOSINOPHILS 1.8 % (0-7); HEMATOCRIT 29.5 % (36.0-48.0); HEMOGLOBIN 9.5 g/dL (12-16); IMMATURE GRANULOCYTES 0.4 % (0-5); LYMPHOCYTES 17.9 % (15-50); MCH 28.7 pg (26.0-34.0); MCHC 32.2 g/dL (31.0-37.0); MCV 89.1 fL (80.0-100.0); MEAN PLATELET VOLUME 9.6 fL (7.4-10.4); MONOCYTES 11.4 % (2-11); NEUTROPHILS 68.1 % (40-80); PLATELET COUNT 288 10x3/uL (130-400); RBC 3.31 10x6/uL (4.00-5.40); RDW 14.1 % (11.5-14.5); WBC 7.3 10x3/uL (4.8-10.8)
[2018-09-27 07:42] LABS: ANION GAP 13.9 mmol/L (8-16); CALCIUM 8.4 mg/dL (8.5-10.1); CARBON DIOXIDE 27.1 mmol/L (21.0-32.0); CREATININE - SERUM 1.5 mg/dL (0.6-1.3)
[2018-09-27 08:06] VITALS: BP 113/52
--- NOTE | 2018-09-27 10:34 | NUR ---
LAYING QUIETLY IN BED RESTING WITH EYES CLOSED. DENIES PAIN. CALL LIGHT IN REACH. BED IN LOWEST POSITION. SIDE RAILS UP X2.
--- NOTE | 2018-09-27 10:43 | NUR ---
NUTRITION F/U CHART REVIEWED, PT VISIT. REPORTS DRINKING ENSURE BID. 75% INTAKE RECENT MEALS ON REG DIET. WILL CONTINUE TO HONOR FOOD PREFERENCES, MONITOR PO INTAKE. RD FOLLOWING
--- NOTE | 2018-09-27 12:40 | NUR ---
SITTING UP IN BED EATING LUNCH. DENIES INCREASED PAIN TO LLE. HAS LEG BRACE IN PLACE. PEDAL PULSES X2 PRESENT. CALL LIGHT IN REACH, BED IN LOWEST POSITION, SIDE RAILS UP X2
--- NOTE | 2018-09-27 15:23 | NUR ---
PATIENT ADMITTED TO REHAB FROM ACUTE FLOOR. HER PCP IS DR. GENAO, DME AT HOME IS A WALKER. DISCHARGE PLANS ARE FOR PATIENT TO RETURN TO HER HOME WITH HOME HEALTH. WILL CONTINUE TO FOLLOW WITH PATIENT
--- NOTE | 2018-09-27 19:30 | NUR ---
BEDSIDE REPORT COMPLETE. SITTING UP IN BED WATCHING TV. DENIES ANY NEEDS OR PAIN. NO SIGNS OF DISTRESS NOTED. CALL LIGHT AND WATER WITHIN REACH, FALL PRECAUTIONS IN PLACE, BED WAIVER NOTED IN CHART. WILL CONTINUE TO MONITOR
[2018-09-27 21:19] VITALS: BP 140/56
--- NOTE | 2018-09-27 23:40 | NUR ---
QUIET HOURS. LYING IN BED SUPINE EYES CLOSED RESTING. RR EVEN AND UNLABORED. WILL CONTINUE TO MONITOR
--- NOTE | 2018-09-28 02:07 | NUR ---
ASSISTED TO RESTROOM WITH SBA. NO CONCERNS VOICED. DENIES ANY PAIN. WILL CONTINUE TO MONITOR
--- NOTE | 2018-09-28 04:50 | NUR ---
LYING IN BED SUPINE EYES CLOSED RESTING. RR EVEN AND UNLABORED. WILL CONTINUE TO MONITOR
[2018-09-28 08:00] VITALS: BP 128/59
--- NOTE | 2018-09-28 13:16 | NUR ---
LAYING IN BED WITH EYES CLOSED. NO S/S DISTRESS. CALL LIGHT IN REACH. LLE ELEVATED IN BED ON PILLOW
[2018-09-28 19:35] VITALS: BP 136/54
--- NOTE | 2018-09-28 19:40 | NUR ---
BEDSIDE REPORT COMPLETE. SITTING UP IN BED ALERT AND ORIENTED X4. C/O LEFT KNEE "STINGING" REMOVED DRESSING, INCISION ZIPTIED NO DRAINAGE, REDNESS OR SWELLING NOTED. IRRITATION ON INNER LEG FROM NICHOLAS WRAP. PT STATED AFTER REMOVING NICHOLAS WRAP KNEE FELT BETTER. WILL LEAVE OPEN TO AIR AND BRACE OFF FOR AN HOUR WHILE IN BED. CALL LIGHT AND WATER WITHIN REACH, FALL PRECAUTIONS IN PLACE, SIGNED BED ALARM WAIVER IN CHART. WILL CONTINUE TO [facility]
--- NOTE | 2018-09-29 00:51 | NUR ---
QUIET HOURS. LYING IN BED EYES CLOSED RESTING. NO SIGNS OF DISTRESS NOTED. WILL CONTINUE TO MONITOR
--- NOTE | 2018-09-29 01:20 | NUR ---
ASSISTED TO RESTROOM WITH SBA.
--- NOTE | 2018-09-29 03:41 | NUR ---
LYING IN BED SUPINE EYES CLOSED RESTING. NO SIGNS OF DISTRESS NOTED. WILL CONTINUE TO MONITOR
--- NOTE | 2018-09-29 06:27 | NUR ---
LYING IN BED WATCHING TV. DENIES ANY NEEDS OR PAIN. WILL CONTINUE TO MONITOR
[2018-09-29 07:30] VITALS: BP 123/52
--- NOTE | 2018-09-29 12:03 | NUR ---
RESTING QUIETLY IN BED. HAS BEEN UP TO BATHROOM BUT STATES HER NECK HURTS HER TODAY AND WANTED TO LAY BACK DOWN. LLE LEG BRACE IN IN PLACE. CALL LIGHT IN REACH
--- NOTE | 2018-09-29 18:33 | NUR ---
HAD SHOWER, NOW RESTING QUIETLY IN BED. APPETITE POOR AT PRESENT. HAD LARGE BM JUST NOW. LLE LEG BRACE IN PLACE. CALL LIGHT IN REACH.
--- NOTE | 2018-09-29 19:25 | NUR ---
BEDSIDE REPORT COMPLETE. SITTING UP IN BED WATCHING TV. DENIES ANY NEEDS OR PAIN. NO SIGNS OF DISTRESS NOTED. CALL LIGHT WITHIN REACH, FALL PRECAUTIONS IN PLACE. WILL CONTINUE TO MONITOR
[2018-09-29 20:05] VITALS: BP 137/40
--- NOTE | 2018-09-30 00:57 | NUR ---
QUIET HOURS. LYING IN BED SUPINE EYES CLOSED RESTING. NO SIGNS OF DISTRESS NOTED. WILL CONTINUE TO MONITOR
--- NOTE | 2018-09-30 02:57 | NUR ---
LYING IN BED EYES CLOSED RESTING. NO SIGNS OF DISTRESS NOTED. WILL CONTINUE TO MONITOR
--- NOTE | 2018-09-30 06:40 | NUR ---
LYING IN BED WATCHING TV. DENIES ANY NEEDS OR PAIN. NO SIGNS OF DISTRESS NOTED.
[2018-09-30 07:03] LABS: BASOPHILS 0.4 % (0-2); EOSINOPHILS 1.9 % (0-7); HEMATOCRIT 29.8 % (36.0-48.0); HEMOGLOBIN 9.6 g/dL (12-16); IMMATURE GRANULOCYTES 0.8 % (0-5); MCH 28.4 pg (26.0-34.0); MCHC 32.2 g/dL (31.0-37.0); MCV 88.2 fL (80.0-100.0); MEAN PLATELET VOLUME 9.4 fL (7.4-10.4); MONOCYTES 16.7 % (2-11); NEUTROPHILS 55.2 % (40-80); RBC 3.38 10x6/uL (4.00-5.40); RDW 13.9 % (11.5-14.5); WBC 5.2 10x3/uL (4.8-10.8)
[2018-09-30 07:06] LABS: PLATELET COUNT 372 10x3/uL (130-400)
[2018-09-30 07:11] LABS: ANION GAP 13.1 mmol/L (8-16); CALCIUM 9.1 mg/dL (8.5-10.1); CARBON DIOXIDE 28.8 mmol/L (21.0-32.0); CREATININE - SERUM 1.5 mg/dL (0.6-1.3); POTASSIUM - SERUM 3.9 mmol/L (3.5-5.1)
[2018-09-30 08:23] VITALS: BP 121/55
--- NOTE | 2018-09-30 18:03 | NUR ---
LAYING IN BED EATING SUPPER. STATES HER APPETITE IS BACK AND IS NOW HUNGRY. STILL WEARING LLE LEG BRACE. CALL LIGHT IN REACH
--- NOTE | 2018-09-30 20:45 | NUR ---
REST IN BED AND WATCH TV.
[2018-09-30 23:28] VITALS: BP 105/49
--- NOTE | 2018-10-01 01:34 | NUR ---
REST IN BED, CALL LIGHT IN REACH.
--- NOTE | 2018-10-01 04:03 | NUR ---
I have reviewed this patient and I concur with the Shift Assessment completed by the Licensed Practical Nurse today this shift.
--- NOTE | 2018-10-01 07:50 | NUR ---
PT AM MEDS ADMINISTERED. PT PRN ZOFRAN GIVEN AT THIS TIME. PT DENIES NEEDS. WCTM.
[2018-10-01 08:22] VITALS: BP 121/46
--- NOTE | 2018-10-01 17:45 | NUR ---
PT SITTING UP IN BED EATING DINNER, DENIES NEEDS. WCTM.
--- NOTE | 2018-10-01 19:40 | NUR ---
PT LYING IN BED. CL IN REACH. DENIES NEEDS AT THIS TIME. PT PREFORMING ROM WITH LEFT LEG IN BED. TOLERATING WELL. A/O X4. RESP EVEN AND UNLABORED. WCTM
[2018-10-01 20:17] VITALS: BP 104/57
--- NOTE | 2018-10-01 22:00 | NUR ---
ASSISTED TO AND FROM BATHROOM. PT BACK IN BED. CL IN REACH. DENIES FURTHER NEEDS. WCTM
[2018-10-02 06:41] LABS: BASOPHILS 0.3 % (0-2); EOSINOPHILS 1.6 % (0-7); HEMATOCRIT 29.9 % (36.0-48.0); HEMOGLOBIN 9.7 g/dL (12-16); IMMATURE GRANULOCYTES 2.1 % (0-5); MCH 28.8 pg (26.0-34.0); MCHC 32.4 g/dL (31.0-37.0); MCV 88.7 fL (80.0-100.0); MEAN PLATELET VOLUME 9.2 fL (7.4-10.4); PLATELET COUNT 371 10x3/uL (130-400); RBC 3.37 10x6/uL (4.00-5.40); RDW 13.9 % (11.5-14.5)
[2018-10-02 06:42] LABS: WBC 7.7 10x3/uL (4.8-10.8)
[2018-10-02 07:00] LABS: ANION GAP 10.4 mmol/L (8-16); CALCIUM 8.1 mg/dL (8.5-10.1); CARBON DIOXIDE 29.3 mmol/L (21.0-32.0); POTASSIUM - SERUM 3.7 mmol/L (3.5-5.1)
[2018-10-02 07:01] LABS: CREATININE - SERUM 1.9 mg/dL (0.6-1.3)
[2018-10-02 08:02] VITALS: BP 117/41
--- NOTE | 2018-10-02 08:15 | NUR ---
PATIENT IS ALERT/ORIENT. IN REHAB ROOM. WORKING WITH PHYSICAL THERAPIST. WILL CONTINUE WITH PLAN OF CARE
--- NOTE | 2018-10-02 10:59 | NUR ---
PATIENT IS A MIN ASST FROM WHEELCHAIR TO TOILET. PATIENT ABLE TO DO OWN NISREEN CARE
--- NOTE | 2018-10-02 11:41 | RHP ---
PATIENT: SETH MAXWELL MEDICAL RECORD: [id number] ACCOUNT: [id number] LOCATION:[facility] : 43 ADMISSION DATE: 09/24/18 REHABILITATION HISTORY AND PHYSICAL EXAMINATION POST ADMISSION PHYSICIAN EXAMINATION DATE OF ADMISSION: 09/24/2018. ADMITTING DIAGNOSIS: Under orthopedic classifications. HISTORY OF PRESENT ILLNESS: The patient is a 72-year-old female patient who presented to the ED while she was standing on her bed trying to remove a light fixture from the ceiling fan when she lost her balance, fell on the floor twisting her left knee. CT scan showed a highly comminuted fracture of her proximal tibia and depression and displacement of the lateral plateau. There was extension fracture in the tibial spines with displacement and also posterior aspect of the medial tibial plateau. Orthopedic was consulted. She underwent an ORIF of her left tibial plateau on 09/21/2018. She has got a history of hypertension, COPD, chronic constipation and used to smoke. The patient is currently having increased pain and having pain medication adjustments during her stay. She is on IV antibiotic therapy and electrolyte protocol, acute blood loss anemia, impaired mobility, gait disturbance, debility, deconditioning, and self-care deficits. These are all barriers to her discharge home safely at this time. Lives at home alone, was independent with her mobility and ADLs prior to this. She is currently set up for max assist for ADLs and max assist to total assist for mobility secondary to increased pain. She would like to return home with some friends here from out of town that will assist her and have home health set up after her inpatient stay. COMORBIDITIES: Include acute fall at home, acute left tibial plateau fracture, status post left tibial plateau ORIF, acute blood loss anemia, hypertension, hard of hearing, COPD, acid reflux, chronic constipation, history of tobacco use. PAST MEDICAL HISTORY: Significant for neuropathy, tremors, has got hard of hearing, hypertension, coronary artery disease, COPD, acid reflux, constipation, and tobacco use in the past. PAST SURGICAL HISTORY: Includes gallbladder surgery, appendectomy, hysterectomy, and angioplasty with stents. ALLERGIES: PLAVIX AND SOME ANTIBIOTIC THAT SHE IS UNSURE OF AT THIS TIME. CURRENT MEDICATIONS: Include Cozaar 100 mg daily. She is on Chlorthalidone 50 mg daily. She is on aspirin chewable 81 mg daily, Norvasc 10 mg daily, Protonix 40 mg daily, Synthroid 75 mcg daily, Pravachol 80 mg q.h.s., Mirapex 3 mg q.h.s., polyethylene glycol 17 grams in 8 ounces of water daily, Wellbutrin 75 b.i.d., Eliquis 2.5 mg b.i.d., [place] 7.5 one tab every 4 hours p.r.n., and MiraLax 17 grams in 8 ounces of water daily. HABITS: No current alcohol or tobacco use. She does have a history of tobacco use in the past. FAMILY HISTORY: Noncontributory. HISTORY AND PHYSICAL [id number] SETH MAXWELL SOCIAL HISTORY: Once again, the patient hopes to go home. She has got strong friend support to help her with this. REVIEW OF SYSTEMS: GENERAL: Does complain of some weakness and fatigue. HEENT: Denies cold, cough, or congestion. CARDIOVASCULAR: Denies chest pain. PHYSICAL EXAMINATION: VITAL SIGNS: Stable, afebrile. GENERAL: A well-developed female in no acute distress, alert upon exam. HEENT: Normocephalic and atraumatic. Mucosa moist. NECK: Supple, with no lymphadenopathy. LUNGS: Clear in upper tim. HEART: Regular rate and rhythm. No murmurs, rubs or gallops. ABDOMEN: Soft, benign, and nondistended. Positive bowel sounds times 4. EXTREMITIES: No clubbing, cyanosis, but her postop area looks pretty good. NEUROLOGIC: She is intact. She has good muscular strength in her proximal muscles of her thighs. LABORATORY DATA: White count is 8.3, H&H of 9.2 and 27.2 and platelet count is 242. Sodium is 144, potassium 3.6, BUN and creatinine of 16 and 1.3, and blood sugar is noted to be 96. ASSESSMENT: This is a 72-year-old female patient admitted to the rehab with a working diagnosis under the orthopedic group secondary to a tibial plateau fracture and status post open reduction internal fixation. The patient has potential to make improvement. We instituted the following multidisciplinary therapies including but not limited to physical, occupational, respiratory, speech, nutritional services, prosthetics and orthotics. Given her complex medical condition and risks for more complications, rehabilitation services cannot be provided at a low level of care such as retirement facility. PLAN: 1. Admit to [facility] for an intensive inpatient therapy to include the following disciplines: A. Physical therapy to improve gait, all transfer skills and bed mobility to a modified independent level. B. Occupational therapy to improve activities of daily living to a modified independent level. C. Case management to assist with discharge planning and placement options. D. Nutrition to assist with nutritional needs. E. Rehabilitation nursing to assist in monitoring the patient's underlying medical conditions and to assist with any type of bowel or bladder management. 2. The patient's current medication and medical care will be continued. 3. The patient will be placed on standard fall precautions. 4. The patient's estimated length of stay is approximately 7-10 days. 5. I will discuss this patient during care team staffing this week. TRANSINT:[id number] Voice Confirmation ID: [id number] DOCUMENT ID: [id number] Edited 09/30/18 for elliot BERG. OTIS notes whether there has been none or any medical/functional change since admission: HISTORY AND PHYSICAL [id number] SETH MAXWELL since preadmission screen. OTIS attests patient continues to be appropriate for IRF: - Continues to be appropriate. YUE GALICIA MD at 1141 CC: [id number] DICTATION DATE: 09/25/18 0849 QA SOFTWARE TESTER: 09/25/18 0919 ADM IN [facility] [address] [place] [address]
--- NOTE | 2018-10-02 14:18 | NUR ---
Nutrition Follow-up: Diet: Regular PO intake: 16% avg. x last 6 meals Reports poor appetite. Does not like "hospital food." Is ordering Boost from menu and drinking about 3 per day. +BM, labs and meds reviewed Encouraged her to write in food preferences on menu. RD Following
--- NOTE | 2018-10-02 16:52 | NUR ---
PRN ZOFRAN GIVEN FOR NAUSEA
--- NOTE | 2018-10-02 20:00 | NUR ---
PATYIENT RECIEVED SITTING UP IN BED. ASSESSMENT & VITAL SIGNS DONE. BED LOW. BEDSIDE TABLE & CALL LIGHT WITHIN REACH. WILL CONTINUE TO MONITOR.
[2018-10-02 20:15] VITALS: BP 100/49
--- NOTE | 2018-10-03 00:52 | NUR ---
I have reviewed this patient and I concur with the Shift Assessment completed by the Licensed Practical Nurse today this shift.
--- NOTE | 2018-10-03 03:56 | NUR ---
PATIENT EYES CLOSED. RESPIRATIONS 18 & EVEN. BED LOW. CALL LIGHT WITHIN REACH. WILL CONTINUE TO MONITOR.
[2018-10-03 08:14] VITALS: BP 96/47
[2018-10-03 20:00] VITALS: BP 105/40
--- NOTE | 2018-10-03 20:00 | NUR ---
PATIENT RECEIVED SITTING UP IN BED. ASSESSMENT & VITAL SIGNS DONE. NO C/O PAIN OR DISTRESS. BED LOW. CALL LIGHT WITHIN REACH.
--- NOTE | 2018-10-04 03:18 | NUR ---
I have reviewed this patient and I concur with the Shift Assessment completed by the Licensed Practical Nurse today this shift.
--- NOTE | 2018-10-04 08:30 | NUR ---
SITTING UP IN BED FOR BREAKFAST. DENIES NEEDS. APPEARS DROWSY BUT COOPERATIVE. DENIES N/V. CALL LIGHT IN REACH
[2018-10-04 08:42] VITALS: BP 110/53
[2018-10-04 09:12] LABS: BASOPHILS 0.2 % (0-2); EOSINOPHILS 1.1 % (0-7); HEMATOCRIT 32.9 % (36.0-48.0); HEMOGLOBIN 10.6 g/dL (12-16); IMMATURE GRANULOCYTES 2.2 % (0-5); LYMPHOCYTES 24.7 % (15-50); MCH 28.8 pg (26.0-34.0); MCHC 32.2 g/dL (31.0-37.0); MCV 89.4 fL (80.0-100.0); MEAN PLATELET VOLUME 9.4 fL (7.4-10.4); MONOCYTES 6.7 % (2-11); NEUTROPHILS 65.1 % (40-80); PLATELET COUNT 435 10x3/uL (130-400); RBC 3.68 10x6/uL (4.00-5.40); RDW 14.1 % (11.5-14.5); WBC 9.5 10x3/uL (4.8-10.8)
[2018-10-04 09:32] LABS: ANION GAP 14.1 mmol/L (8-16); CALCIUM 8.7 mg/dL (8.5-10.1); CARBON DIOXIDE 28.6 mmol/L (21.0-32.0); CREATININE - SERUM 2.3 mg/dL (0.6-1.3); POTASSIUM - SERUM 3.7 mmol/L (3.5-5.1)
--- NOTE | 2018-10-04 16:08 | NUR ---
RESTING QUIETLY IN BED. HAS LLE ELEVATED ON PILLOWS AND IS WEARING A BRACE TO LLE. NO S/S DISTRESS OR INCREASED PAIN. CALL LIGHT IN REACH. SIDE RAILS UP X2. BED IN LOWEST POSITION.
--- NOTE | 2018-10-04 19:15 | NUR ---
RECEIVED CARE FROM DAY NURSE. LYING IN BED WATCHING TV. CALL LIGHT AT SIDE. REPORTS NO NEEDS AT THIS TIME. LEFT LEG IN IMOBILIZER.
[2018-10-04 20:00] VITALS: BP 116/50
--- NOTE | 2018-10-04 23:04 | NUR ---
LYING IN BED WITH EYES CLOSED. RESP EVEN AND UNLABORED. CALL LIGHT AT SIDE. NO DISTRESS NOTED.
--- NOTE | 2018-10-05 06:55 | NUR ---
I have reviewed this patient and I concur with the Shift Assessment completed by the Licensed Practical Nurse today this shift.
[2018-10-05 07:50] VITALS: BP 130/59
--- NOTE | 2018-10-05 09:32 | NUR ---
PT ALERT X 4. BREATH SOUNDS CLEAR BILAT. PT ASSISTED TO BATHROOM AND BACK TO BED. PT REPORTING NO PAIN AT THIS TIME. BRACE TO LEFT LEG. BED LOW, CALL LIGHT IN REACH. NO OTHER NEEDS AT THIS TIME.
--- NOTE | 2018-10-05 19:21 | NUR ---
PT RESTING QUIETLY. EYES CLOSED. NO DISTRESS NOTED. CL IN REACH. WCTM RESP EVEN AND UNLABORED.
[2018-10-05 20:04] VITALS: BP 106/40
--- NOTE | 2018-10-05 22:00 | NUR ---
ASSISTED TO AND FROM BATHROOM. CL IN REACH. BACK IN BED. DENIES FURTHER NEEDS. WCTM
--- NOTE | 2018-10-06 02:54 | NUR ---
I have reviewed this patient and I concur with the Shift Assessment completed by the Licensed Practical Nurse today this shift.
--- NOTE | 2018-10-06 06:26 | NUR ---
PT RESTING QUIETLY. EYES CLOSED. DENIES NEEDS. WCTM CL IN REACH
[2018-10-06 08:14] VITALS: BP 112/42
--- NOTE | 2018-10-06 13:00 | NUR ---
I have reviewed this patient and I concur with the Shift Assessment completed by the Licensed Practical Nurse today this shift.
--- NOTE | 2018-10-06 14:03 | NUR ---
PATIENTS' IN ROOM VISITING PATIENT. PATIENT VOICES NO NEEDS AT THIS TIME.
--- NOTE | 2018-10-06 19:39 | NUR ---
ASSISTED TO AND FROM BATHROOM. BACK IN BED.CL IN REACH. DENIES FURTHER NEEDS. A/O X4. RESP EVEN AND UNLABORED. IMMOBILIZER TO LEFT LEG. WCTM
[2018-10-06 19:43] VITALS: BP 118/47
--- NOTE | 2018-10-07 00:08 | NUR ---
ASSISTED TO AND FROM BATHROOM. CL IN REACH. BACK IN BED. PT COMPLAINING OF NECK PAIN. PAIN PILL GIVEN PER APR. WCTM
--- NOTE | 2018-10-07 02:23 | NUR ---
I have reviewed this patient and I concur with the Shift Assessment completed by the Licensed Practical Nurse today this shift.
--- NOTE | 2018-10-07 06:29 | NUR ---
ASSISTED TO AND FROM BATHROOM. CL IN REACH. BACK IN BED. WCTM
[2018-10-07 07:20] LABS: BASOPHILS 0.3 % (0-2); EOSINOPHILS 2.3 % (0-7); HEMATOCRIT 33.2 % (36.0-48.0); HEMOGLOBIN 10.7 g/dL (12-16); IMMATURE GRANULOCYTES 1.7 % (0-5); LYMPHOCYTES 23.7 % (15-50); MCH 28.7 pg (26.0-34.0); MCHC 32.2 g/dL (31.0-37.0); MEAN PLATELET VOLUME 9.6 fL (7.4-10.4); MONOCYTES 6.4 % (2-11); NEUTROPHILS 65.6 % (40-80); PLATELET COUNT 407 10x3/uL (130-400); RBC 3.73 10x6/uL (4.00-5.40); RDW 14.2 % (11.5-14.5); WBC 11.1 10x3/uL (4.8-10.8)
--- NOTE | 2018-10-07 07:30 | NUR ---
ANXIOUS ABOUT DC TOMORROW. WANTS TO TALK TO PARTS ADMINISTRATOR ABOUT PLACEMENT. NURSE LEFT NOTE FOF PARTS ADMINISTRATOR.
[2018-10-07 07:31] LABS: ANION GAP 11.9 mmol/L (8-16); CALCIUM 9.1 mg/dL (8.5-10.1); CARBON DIOXIDE 29.4 mmol/L (21.0-32.0); CREATININE - SERUM 2.1 mg/dL (0.6-1.3); POTASSIUM - SERUM 4.3 mmol/L (3.5-5.1)
[2018-10-07 09:00] VITALS: BP 156/51
--- NOTE | 2018-10-07 09:53 | NUR ---
SPOKE WITH PATIENT THIS AM AND SHE FEELS THAT SHE IS NOT READY TO GO HOME AT THIS TIME AND WOULD LIKE A REFERRAL TO BE MADE TO [facility] FOR POSSIBLE ADMISSION. REFERRAL HAS BEEN FAXED . WILL CONTINUE TO FOLLOW WITH PATIENT.
--- NOTE | 2018-10-07 10:15 | NUR ---
LAYING IN BED RESTING AND WATCHING TV. DENIES NEW PROBLEMS OR NEW PAIN. LLE HAS IMMOBILIZER IN PLACE AND SHE IS NWB. CALL LIGHT IN REACH
--- NOTE | 2018-10-07 17:55 | NUR ---
LAYING DOWN IN BED PLAYING ON PHONE. DENIES NEEDS OR C/O. HAS LLE BRACE ON. DENIES N/V OR DIARRHEA.
--- NOTE | 2018-10-07 20:19 | NUR ---
ASSISTED PT TO BATHROOM.
--- NOTE | 2018-10-07 23:16 | NUR ---
ASSISTED PT TO BATHROOM.
[2018-10-08 00:22] VITALS: BP 116/47
--- NOTE | 2018-10-08 01:15 | NUR ---
PT C/O PAIN IN LEG, AT A LEVEL OF 8. PAIN MEDICATION GIVEN ORDERED.
--- NOTE | 2018-10-08 04:08 | NUR ---
I have reviewed this patient and I concur with the Shift Assessment completed by the Licensed Practical Nurse today this shift.
--- NOTE | 2018-10-08 04:28 | NUR ---
REST IN BED, CALL LIGHT IN REACH.
--- NOTE | 2018-10-08 08:00 | NUR ---
SITTING UP FOR BREAKFAST. DENIES INCREASED PAIN TO LLE. STILL HAS BRACE ON.
[2018-10-08 08:10] VITALS: BP 112/58
[2018-10-08] MEDS ORDERED: ELIQUIS2.5 MG PO (09:03)
--- NOTE | 2018-10-08 11:52 | NUR ---
PATIENT HAS BEEN ACCEPTED TO [facility] AND WILL TRANSFER THERE VIA FACILITY VAN. NO HOME HEALTH OR DME NEEDED AT THIS TIME.PATIENT CHOICE FORM AND IMFM FORMS SIGNED, COPY GIVEN TO PATIENT AND FILED IN CHART. DISCHARGE INSTRUCTIONS WITH [facility]IM DATA FAXED TO SNF, AND REVIEWED WITH PATIENT. AN APPOINTMENT WITH PATIENT PCP WILL BE MADE WHEN DISCHARGE FROM FACILITY. DR. COLÓN 10/09/18 @ 12:45.
--- NOTE | 2018-10-08 12:00 | NUR ---
DC TO [facility]. REPORT CALLED. SHE TOOK ALL HER PERSONAL BELONGINS WITH HER. [facility] TOOK HER IN .
== END 2018-10-08 12:00 | DRG 560 ==
LOC: D.REHAB 15:22
PROVIDERS: ADMIT Emergency Medicine; ATTEND Emergency Medicine
DX: S82.142D Displaced bicondylar fracture of left tibia, subsequent encounter for closed fracture with routine healing (principal); D62 Acute posthemorrhagic anemia; K59.09 Other constipation; J44.9 Chronic obstructive pulmonary disease, unspecified; K21.9 Gastro-esophageal reflux disease without esophagitis; I10 Essential (primary) hypertension; W19.XXXD Unspecified fall, subsequent encounter; H91.90 Unspecified hearing loss, unspecified ear; Z87.891 Personal history of nicotine dependence

== ENCOUNTER → 2019-03-06 11:38 | Outpatient (CLI) | payer MEDICARE, OTHER ==
[2018-09-25 10:47] VITALS: BMI 26.7
== END | disposition home or self-care (01) ==
LOC: D.US 11:30
PROVIDERS: ATTEND Orthopaedic Surgery
DX: R22.40 Localized swelling, mass and lump, unspecified lower limb (principal)

== ENCOUNTER 2019-04-07 15:39 | Emergency (ER) | payer MEDICARE, OTHER ==
[~2019-04-07] VITALS: Ht 162.6 cm; Wt 71.8 kg
[2019-04-07 15:41] VITALS: Ht 162.6 cm; Wt 71.8 kg
[2019-04-07 17:25] VITALS: BP 163/59
== END 2019-04-07 17:25 | disposition home or self-care (01) ==
LOC: D.ER 15:39
DX: M25.562 Pain in left knee (principal); G89.29 Other chronic pain; Z86.718 Personal history of other venous thrombosis and embolism; I10 Essential (primary) hypertension; J44.9 Chronic obstructive pulmonary disease, unspecified; K21.9 Gastro-esophageal reflux disease without esophagitis

== ENCOUNTER 2019-05-18 04:30 | Inpatient (IN) | payer MEDICARE, OTHER ==
[~2019-05-18] VITALS: Ht 162.6 cm; Wt 71.7 kg
[2019-05-18 05:16] LABS: HEMATOCRIT 32.9 % (36.0-48.0); HEMOGLOBIN 10.2 g/dL (12-16); MCH 26.7 pg (26.0-34.0); MCV 86.1 fL (80.0-100.0); MEAN PLATELET VOLUME 9.6 fL (7.4-10.4); PLATELET COUNT 217 10x3/uL (130-400); RBC 3.82 10x6/uL (4.00-5.40); WBC 21.7 10x3/uL (4.8-10.8)
[2019-05-18 05:22] LABS: ANION GAP 14.6 mmol/L (8-16); CARBON DIOXIDE 23.8 mmol/L (21.0-32.0); CREATININE - SERUM 1.6 mg/dL (0.6-1.3); POTASSIUM - SERUM 3.4 mmol/L (3.5-5.1)
[2019-05-18 05:33] LABS: EOSINOPHILS 1 % (0-7); LYMPHOCYTES 6 % (15-50); MONOCYTES 5 % (2-11); NEUTROPHILS 86 % (40-80); PLATELET ESTIMATE NORMAL
[2019-05-18 05:51] LABS: ALBUMIN 3.2 g/dL (3.4-5.0); BILIRUBIN - TOTAL 1.04 mg/dL (0.2-1.3); PROTEIN - SERUM 7.3 g/dL (6.4-8.2)
[2019-05-18 05:53] LABS: UDS - AMPHET NEGATIVE QUAL (NEGATIVE); UDS - BARB NEGATIVE QUAL (NEGATIVE); UDS - BENZO NEGATIVE QUAL (NEGATIVE); UDS - COCAINE NEGATIVE QUAL (NEGATIVE); UDS - OPIATE NEGATIVE QUAL (NEGATIVE); UDS - PCP NEGATIVE QUAL (NEGATIVE); UDS - THC NEGATIVE QUAL (NEGATIVE)
[2019-05-18 05:55] LABS: C-REACTIVE PROTEIN 12.2 mg/dL (0.0-0.9); TROPONIN-I 0.099 ng/mL (0.000-0.060)
[2019-05-18 06:12] LABS: BILIRUBIN NEGATIVE (NEGATIVE); GLUCOSE NEGATIVE (NEGATIVE); KETONE NEGATIVE (NEGATIVE); NITRITE NEGATIVE (NEGATIVE); SPECIFIC GRAVITY 1.015 (1.005-1.020); UROBILINOGEN NORMAL (NORMAL)
[2019-05-18 08:26] VITALS: BP 121/45
[2019-05-18 13:09] VITALS: BP 131/65
[2019-05-18 16:05] VITALS: BP 107/78
[2019-05-18 19:52] VITALS: BP 103/48
--- NOTE | 2019-05-18 20:30 | NUR ---
LYING QUEITLY WITH EYES CLOSED. AROUSES TO VERBAL STIMULI.LLE RED AND WARM TO TOUCH.WITH EDEMA NOTED. SL TO LFA INTACT WITHOUT REDNESS OR EDEMA NOTED. CL IN REACH
[2019-05-19] VITALS: BP 100/51
[2019-05-19 04:00] VITALS: BP 99/40
[2019-05-19 05:24] LABS: BASOPHILS 0.1 % (0-2); EOSINOPHILS 0.1 % (0-7); HEMATOCRIT 27.2 % (36.0-48.0); HEMOGLOBIN 8.2 g/dL (12-16); IMMATURE GRANULOCYTES 0.3 % (0-5); LYMPHOCYTES 6.2 % (15-50); MCH 26.1 pg (26.0-34.0); MCHC 30.1 g/dL (31.0-37.0); MCV 86.6 fL (80.0-100.0); MEAN PLATELET VOLUME 10.2 fL (7.4-10.4); MONOCYTES 6.8 % (2-11); NEUTROPHILS 86.5 % (40-80); PLATELET COUNT 211 10x3/uL (130-400); RBC 3.14 10x6/uL (4.00-5.40); RDW 14.1 % (11.5-14.5)
[2019-05-19 05:33] LABS: WBC 13.6 10x3/uL (4.8-10.8)
[2019-05-19 05:57] LABS: ALBUMIN 2.4 g/dL (3.4-5.0); BILIRUBIN - TOTAL 0.84 mg/dL (0.2-1.3); CALCIUM 8.2 mg/dL (8.5-10.1); CREATININE - SERUM 1.8 mg/dL (0.6-1.3); POTASSIUM - SERUM 3.9 mmol/L (3.5-5.1); PROTEIN - SERUM 6.1 g/dL (6.4-8.2)
[2019-05-19 06:02] LABS: ANION GAP 7.7 mmol/L (8-16); CARBON DIOXIDE 30.2 mmol/L (21.0-32.0)
--- NOTE | 2019-05-19 07:48 | NUR ---
PT LYING IN BED, CL IN REACH, PT LT LEG BELOW KNEE IS RED, WARM TO TOUCH, PT PENDING VISIT FROM DOCTOR THIS MORNING TO SEE IF SURGERY NEEDS TO BE DONE, NO S/SX OF DISTRESS, CL IN REACH ASSUME PT CARE
[2019-05-19 08:53] VITALS: BP 98/39
[2019-05-19 12:13] VITALS: BP 91/39
[2019-05-19 13:17] VITALS: Ht 162.6 cm; Wt 71.7 kg
[2019-05-19 16:58] VITALS: BP 96/40
[2019-05-19 20:00] VITALS: BP 87/40
--- NOTE | 2019-05-19 20:00 | NUR ---
ALERT RESTING IN BED, REPORTS PAIN TO LEFT KNNE WITH MOVEMENT, SEE SHIFT ASSESSMENT, CALL LIGHT IN REACH
[2019-05-20] VITALS: BP 84/43
[2019-05-20 04:00] VITALS: BP 99/40
[2019-05-20 05:33] LABS: BASOPHILS 0.2 % (0-2); EOSINOPHILS 1.1 % (0-7); HEMATOCRIT 25.8 % (36.0-48.0); HEMOGLOBIN 7.7 g/dL (12-16); IMMATURE GRANULOCYTES 0.5 % (0-5); LYMPHOCYTES 10.3 % (15-50); MCHC 29.8 g/dL (31.0-37.0); MCV 87.2 fL (80.0-100.0); MEAN PLATELET VOLUME 10.3 fL (7.4-10.4); MONOCYTES 8.7 % (2-11); NEUTROPHILS 79.2 % (40-80); PLATELET COUNT 199 10x3/uL (130-400); RBC 2.96 10x6/uL (4.00-5.40); RDW 14.3 % (11.5-14.5); WBC 10.2 10x3/uL (4.8-10.8)
[2019-05-20 06:04] LABS: ALBUMIN 2.4 g/dL (3.4-5.0); ANION GAP 12.1 mmol/L (8-16); BILIRUBIN - TOTAL 0.7 mg/dL (0.2-1.3); CALCIUM 7.9 mg/dL (8.5-10.1); CARBON DIOXIDE 26.5 mmol/L (21.0-32.0); CREATININE - SERUM 2.6 mg/dL (0.6-1.3); POTASSIUM - SERUM 3.6 mmol/L (3.5-5.1); PROTEIN - SERUM 6.3 g/dL (6.4-8.2)
[2019-05-20 07:37] VITALS: BP 91/36
--- NOTE | 2019-05-20 07:41 | NUR ---
ALERT AND ORIENTED. LUNGS CLEAR BILATERALLY. HEART SOUNDS S1 AND S2 HEARD IN ALL MOLINA. BOWEL SOUNDS ACTIVE X 4. MILD CELLULITIS NOTED TO LLE. SKIN OTHERWISE INTACT WITHOUT REDNESS. IV TO LEFT AC PATENT WITHOUT REDNESS. BED ALARM REFUSAL SIGNED PER PATIENT REQUEST. DENIES NEEDS. BED LOW. CALL ARENAS AND PERSONAL ITEMS IN REACH. WILL CONTINUE TO MONITOR.
[2019-05-20 12:17] VITALS: BP 126/42
--- NOTE | 2019-05-20 13:25 | NUR ---
PATIENT SLEEPING. WILL CONTINUE TO MONITOR.
[2019-05-20 16:14] VITALS: BP 118/60
--- NOTE | 2019-05-20 20:00 | NUR ---
ALERT RESTING IN BED REPORTS PAIN TO LEFT KNEE, STATES MY BP HAS BEEN LOW ALL DAY SO ILL WAIT ON PAIN MEDS, SEE SHIFT ASSESSMENT, CALL LIGHT IN REACH
[2019-05-20 21:55] VITALS: BP 106/46
[2019-05-21 00:55] VITALS: BP 97/45
[2019-05-21 05:28] LABS: BASOPHILS 0.3 % (0-2); EOSINOPHILS 0.7 % (0-7); HEMATOCRIT 24.5 % (36.0-48.0); IMMATURE GRANULOCYTES 0.3 % (0-5); LYMPHOCYTES 8.7 % (15-50); MCH 26.2 pg (26.0-34.0); MCHC 30.6 g/dL (31.0-37.0); MCV 85.7 fL (80.0-100.0); MEAN PLATELET VOLUME 10.1 fL (7.4-10.4); MONOCYTES 12.1 % (2-11); NEUTROPHILS 77.9 % (40-80); PLATELET COUNT 219 10x3/uL (130-400); RBC 2.86 10x6/uL (4.00-5.40); RDW 14.2 % (11.5-14.5); WBC 7.7 10x3/uL (4.8-10.8)
[2019-05-21 05:47] LABS: HEMOGLOBIN 7.5 g/dL (12-16)
[2019-05-21 05:53] LABS: ALBUMIN 2.1 g/dL (3.4-5.0); ANION GAP 11.9 mmol/L (8-16); BILIRUBIN - TOTAL 0.8 mg/dL (0.2-1.3); CALCIUM 7.4 mg/dL (8.5-10.1); POTASSIUM - SERUM 3.9 mmol/L (3.5-5.1)
[2019-05-21 06:50] VITALS: BP 89/48
--- NOTE | 2019-05-21 07:00 | NUR ---
RECEIVED PT FROM MATERIALS RECYCLER. UPON ENTERING PT WAS UPRIGHT IN BED. ALERT AND ORIENTED X4. LEFT AC IV WITH NS AT 75. PT IS ON ROOM AIR. COMPLAINT OF LEFT KNEE PAIN. (REBUILT IN SEPTEMBER OF 2018). PT HAS TELEMETRY. DENIES ANY NEEDS AT THIS TIME. WILL CONTINUE TO MONITOR.
--- NOTE | 2019-05-21 07:25 | NUR ---
PT SITTING UPRIGHT IN BED UPON ENTERING. LOOKING FOR UPPER DENTURE, ATTEMPTED TO HELP PT UNABLE TO FIND THEM, REQUESTED I CALL KITCHED. CALLED PROMPTLY, NO REPORT OF FOUND UPPE DENTURES. ASSESSMENT PERFORMED AT THIS TIME. DENIES ANY OTHER NEEDS. BED IN LOWEST POSITION, BED RAILS X2, CALL LIGHT WITHIN REACH. WILL CONTINUE TO MONITOR.
[2019-05-21 09:04] VITALS: BP 127/55
--- NOTE | 2019-05-21 09:31 | NUR ---
ADMINISTERED MORNING MEDICATION AT THIS TIME, NO DIFFICULTY SWALLOWING. HELPED PT ON OFF AT THE BED. SITUATED AND RESTING COMFORTABLY. DENIES ANY OTHER NEEDS AT THIS TIME. WILL CONTINUE TO MONITOR.
--- NOTE | 2019-05-21 09:40 | NUR ---
DC IV DUE TO CATHETER TIP COMING OUT OF ARM. TIP INTACT. TOLERATED WELL. WILL RESTART IV LATER. DENIES ANY NEEDS. WILL CONTINUE TO MONITOR.
--- NOTE | 2019-05-21 11:33 | NUR ---
ATTEMPTED TO RESTART IV TWICE. UNABLE TO. WILL ASK ANOTHER NURSE TO TRY. DENIES ANY NEEDS AT THIS TIME. WILL CONTINUE TO MONITOR.
--- NOTE | 2019-05-21 12:15 | NUR ---
PT HAS NEW IV TO THE LEFT HAND. IV ANTIBIOTICS RUNNING AT THIS TIME. NO COMPLAINT OF IV PAIN. DENIES ANY NEEDS AT THIS TIME. WILL CONTINUE TO MONITOR.
--- NOTE | 2019-05-21 13:05 | NUR ---
I have reviewed this patient and I concur with the Shift Assessment completed by the Licensed Practical Nurse today this shift.
--- NOTE | 2019-05-21 13:38 | NUR ---
Nutrition follow-up: Diet: Low sodium PO intake poor at this time No BM charted since 05/18 Labs reviewed Will continue to provide food choices, honor foood preferences and offer nutritional supplements. RDN following.
--- NOTE | 2019-05-21 15:48 | NUR ---
INFORMED PT OF OF BLOOD TRANSFUSION. SHE EXPRESSED CONCERN ABOUT RECEIVING BLOOD. WILL CONTACT ATTENDING PHYSICIAN TO SPEAK WITH THEM ABOUT CONCERNS. DENIES ANY OTHER NEEDS AT THIS TIME. WILL CONTINUE TO MONITOR.
--- NOTE | 2019-05-21 17:22 | NUR ---
ADMINISTERING PRBC. SPIKED BY LETTY JARAMILLO. AT PT BEDSIDE. PUTTING CLEAN LINENS ON BED. PT IS RESTING COMFORTABLY. DENIES ANY NEEDS AT THIS TIME. WILL CONTINUE TO MONITOR.
--- NOTE | 2019-05-21 17:36 | NUR ---
NO OBVIOUS REACTIONS IN THE FIRST 15 MINUTES. WILL CONTINUE TO CLOSELY MONITOR PATIENT. LEFT PT EATING HER DINNER.
[2019-05-21 18:29] VITALS: BP 131/33
--- NOTE | 2019-05-21 18:29 | NUR ---
PT REPORTS FEELING GOOD DURING BLOOD TRANSFUSION. NO S/S OF REACTION PRESENT. DENIES ANY NEEDS. WILL CONTINUE TO MONITOR.
[2019-05-21 21:49] VITALS: BP 131/74
[2019-05-22 01:49] VITALS: BP 128/64
[2019-05-22 05:30] LABS: BASOPHILS 0.2 % (0-2); EOSINOPHILS 1.1 % (0-7); IMMATURE GRANULOCYTES 0.8 % (0-5); LYMPHOCYTES 12.5 % (15-50); MCH 26.3 pg (26.0-34.0); MCHC 30.8 g/dL (31.0-37.0); MCV 85.3 fL (80.0-100.0); MEAN PLATELET VOLUME 9.7 fL (7.4-10.4); MONOCYTES 12.8 % (2-11); NEUTROPHILS 72.6 % (40-80); RDW 13.9 % (11.5-14.5); WBC 8.5 10x3/uL (4.8-10.8)
--- NOTE | 2019-05-22 05:31 | NUR ---
I have reviewed this patient and I concur with the Shift Assessment completed by the Licensed Practical Nurse today this shift.
[2019-05-22 05:43] LABS: HEMATOCRIT 29.5 % (36.0-48.0); HEMOGLOBIN 9.1 g/dL (12-16); PLATELET COUNT 271 10x3/uL (130-400); RBC 3.46 10x6/uL (4.00-5.40)
[2019-05-22 05:53] LABS: ALBUMIN 2.2 g/dL (3.4-5.0); ANION GAP 12.1 mmol/L (8-16); BILIRUBIN - TOTAL 0.84 mg/dL (0.2-1.3); CALCIUM 8.4 mg/dL (8.5-10.1); CARBON DIOXIDE 26.8 mmol/L (21.0-32.0); CREATININE - SERUM 1.5 mg/dL (0.6-1.3); POTASSIUM - SERUM 3.9 mmol/L (3.5-5.1); PROTEIN - SERUM 6.6 g/dL (6.4-8.2)
[2019-05-22 06:01] VITALS: BP 116/45
--- NOTE | 2019-05-22 06:50 | NUR ---
ALERT AND ORIENTED, RESTING IN BED WITH EYES OPEN. NO C/O PAIN. NO S/S OF ACUTE DISTRESS NOTED. WEARS GLASSES. ON TELEMETRY 72 SR. IV TO LEFT HAND, NS INFUSING @ 50ML/HR. SITE PATENT WITHOUT REDNESS OR SWELLING. ON ELECTROLYTE PROTOCOL. DENIES ANY NEEDS AT THIS TIME. CALL LIGHT IN REACH. WILL CONTINUE TO MONITOR.
[2019-05-22 09:37] VITALS: BP 127/62
--- NOTE | 2019-05-22 10:13 | NUR ---
Rehab Note- Acute Inpatient prescreen order received. The patient has a pending PT Eval, will await and see the patient's functional mobility at this time. Will follow at this time. Thank you for this referral! Gabriela Ledesma RN Clinical Liaison, [facility]
--- NOTE | 2019-05-22 13:11 | NUR ---
I have reviewed this patient and I concur with the Shift Assessment completed by the Licensed Practical Nurse today this shift.
[2019-05-22 13:42] VITALS: BP 157/68
--- NOTE | 2019-05-22 15:01 | MORECARE ---
CASE MANAGEMENT DISCHARGE SUMMARY PATIENT: SETH MAXWELL UNIT: [id number] ADM DATE: 05/19/19 AGE: 73 : 43 SEX: F ROOM/BED: D.[facility] AUTHOR: LIANNA,DOC PHYSICIAN: REFERRING PHYSICIAN: LISA ROSS MD DATE OF SERVICE: 05/22/19 Discharge Plan Patient Name: SETH MAXWELL Facility: [facility]:[place] : 1945 Planned Disposition: Inpatient Rehab Anticipated Discharge Date: 05/22/19 Discharge Date: Expected LOS: 3 Initial Reviewer: [email or web address] Initial Review Date: 05/22/2019 Generated: 05/22/19 4:01 pm Comments DCP- Discharge Planning Updated by [email or web address]: Danay Arndt on 05/22/19 2:[address] Patient Name: SETH MAXWELL Admission Status: ER Accout number: [id number] Admission Date: 05-19-2019 : 1945 Admission Diagnosis:SEPSIS, UNSPECIFIED ORGANISM Attending: AVNI Current LOS: 3 Anticipated DC Date: 05-22-2019 Planned Disposition: Inpatient Rehab Primary Insurance: MEDICARE A & B Discharge Planning Comments: CM met with patient to discuss discharge planning/needs. States she lives alone, but at this time is staying with her friend (Cherelle) at [address] [place] [address] in [place]. States she uses a walker and wheelchair that she borrowed from [employer]. States she would like to go to inpatient rehab at [facility] prior to going home. MARTIN for [facility] inpatient rehab signed. I spoke with Gabriela in rehab and they will accept her today. I informed Dr. Hager. CM will continue to follow and assist with discharge planning/needs. Pinion Polisher: Danay Arndt DCP- Discharge Planning Updated by [id number]: Nia Tracy on 05/19/19 6:[address] LATE ENTRY 05/18/19 SHIPMAN EXPLAINED AND SIGNED 05/18/19 @ 1800 DCPIA - Discharge Planning Initial Assessment Updated by [id number]: Danay Arndt on 05/22/19 2:59 pm * Is the patient Alert and Oriented? Yes * How many steps to enter\exit or inside your home? 3/0 * PCP Dr. Ross * Pharmacy [facility] * Preadmission Environment Home with Family * ADLs Partial Dependent * Partial ADLs (Assistance needed) Ambulation * Equipment None * Other Equipment Using a walker and a wheelchair borrowed from [employer] * List name and contact numbers for known caregivers / representatives who currently or will assist patient after discharge: Cherelle Arsmtrong [email or web address] - [phone] * Verbal permission to speak to the caregivers and representatives has been obtained from the patient. Yes * Community resources currently utilized None * Additional services required to return to the preadmission environment? No * Can the patient safely return to the preadmission environment? Yes * Has this patient been hospitalized within the prior 30 days at any hospital? No Coverage Notice Reviewer: [email or web address] Noah Tracy Notice Issued Date-Time: 05/18/2019 18:00 Notice Type: Medicare Outpatient Observation Notice Notice Delivered To: Patient Relationship to Patient: Self Museum Exhibit Designer Name: Delivery Method: HAND - Hand Delivered Tova Days: Prior Verbal Notification: Recipient Understood Notice: Yes Recipient Signature: Yes Med Rec Note Co-signed by Attending: Coverage Notice Comment: Patient Name: SETH MAXWELL Page [phone] at 1501 All edits/amendments must be made on the electronic document DICTATION DATE: 05/22/19 1501 RN PARALEGAL: MIHAELA 05/22/19 1501 RPT#: [id number] DC DATE: STATUS: ADM IN [facility] [address] [place] [address] END OF REPORT
[2019-05-22 17:16] VITALS: BP 158/60
--- NOTE | 2019-05-22 17:50 | NUR ---
DISCHARGED PATIENT TO INPATIENT REHAB. CALLED REPORT TO [facility]. DISCONTINUED IV, CATHETER TIP INTACT. WENT OVER DISCHARGE INSTRUCTIONS WITH PATIENT, VERBALIZED UNDERSTANDING. DENIES ANYTHING FURTHER. PROOF TECHNICIAN TOOK PATIENT DOWN VIA WHEELCHAIR.
--- NOTE | 2019-05-23 16:53 | MORECARE ---
CASE MANAGEMENT DISCHARGE SUMMARY PATIENT: SETH MAXWELL UNIT: [id number] ADM DATE: 05/19/19 AGE: 73 : 43 SEX: F ROOM/BED: D.[facility] AUTHOR: LIANNA,DOC PHYSICIAN: REFERRING PHYSICIAN: LISA ROSS MD DATE OF SERVICE: 05/23/19 Discharge Plan Patient Name: SETH MAXWELL Facility: [facility]:[place] : 1945 Planned Disposition: Inpatient Rehab Anticipated Discharge Date: 05/22/19 Discharge Date: 05/22/2019 Expected LOS: 3 Initial Reviewer: [email or web address] Initial Review Date: 05/22/2019 Generated: 05/23/19 5:52 pm Comments DCP- Discharge Planning Updated by [id number]: Danay Arndt on 05/22/19 2:[address] Patient Name: SETH MAXWELL Admission Status: ER Accout number: [id number] Admission Date: 05-19-2019 : 1945 Admission Diagnosis:SEPSIS, UNSPECIFIED ORGANISM Attending: AVNI Current LOS: 3 Anticipated DC Date: 05-22-2019 Planned Disposition: Inpatient Rehab Primary Insurance: MEDICARE A & B Discharge Planning Comments: CM met with patient to discuss discharge planning/needs. States she lives alone, but at this time is staying with her friend (Cherelle) at [address] [place] [address] in [place]. States she uses a walker and wheelchair that she borrowed from [employer]. States she would like to go to inpatient rehab at [facility] prior to going home. MARTIN for [facility] inpatient rehab signed. I spoke with Gabriela in rehab and they will accept her today. I informed Dr. Hager. CM will continue to follow and assist with discharge planning/needs. Grey Roll Man: Danay Arndt DCP- Discharge Planning Updated by [email or web address]: Nia Tracy on 05/19/19 6:[address] LATE ENTRY 05/18/19 SHIPMAN EXPLAINED AND SIGNED 05/18/19 @ 1800 DCPIA - Discharge Planning Initial Assessment Updated by [email or web address]: Danay Arndt on 05/22/19 2:59 pm * Is the patient Alert and Oriented? Yes * How many steps to enter\exit or inside your home? 3/0 * PCP Dr. Ross * [facility]acy [facility] * Preadmission Environment Home with Family * ADLs Partial Dependent * Partial ADLs (Assistance needed) Ambulation * Equipment None * Other Equipment Using a walker and a wheelchair borrowed from [employer] * List name and contact numbers for known caregivers / representatives who currently or will assist patient after discharge: Cherelle Armstrong [email or web address] - [phone] * Verbal permission to speak to the caregivers and representatives has been obtained from the patient. Yes * Community resources currently utilized None * Additional services required to return to the preadmission environment? No * Can the patient safely return to the preadmission environment? Yes * Has this patient been hospitalized within the prior 30 days at any hospital? No Coverage Notice Reviewer: [id number] Noah Tracy Notice Issued Date-Time: 05/18/2019 18:00 Notice Type: Medicare Outpatient Observation Notice Notice Delivered To: Patient Relationship to Patient: Self Plastic Fabricator Name: Delivery Method: HAND - Hand Delivered Tova Days: Prior Verbal Notification: Recipient Understood Notice: Yes Recipient Signature: Yes Med Rec Note Co-signed by Attending: Coverage Notice Comment: Reviewer: [email or web address] Noah Arndt Notice Issued Date-Time: 05/22/2019 15:01 Notice Type: IM Discharge Notice Notice Delivered To: Patient Relationship to Patient: Self Plastic Fabricator Name: Delivery Method: HAND - Hand Delivered Tova Days: Prior Verbal Notification: Recipient Understood Notice: Yes Recipient Signature: Yes Med Rec Note Co-signed by Attending: Coverage Notice Comment: IMM explained, signed, given, copy placed in MR Reviewer: [email or web address] Noah Arndt Notice Issued Date-Time: 05/22/2019 15:01 Notice Type: Patient Choice Letter Notice Delivered To: Patient Relationship to Patient: Self Plastic Fabricator Name: Delivery Method: - Tova Days: Prior Verbal Notification: Recipient Understood Notice: Recipient Signature: Med Rec Note Co-signed by Attending: Coverage Notice Comment: Last DP export: 05/22/19 2:01 pm Patient Name: SETH MAXWELL Page [phone] at 1653 All edits/amendments must be made on the electronic document DICTATION DATE: 05/23/191651 FURNACE SETTER: MIHAELA 05/23/191651 RPT#: [id number] DC DATE:05/22/19 STATUS: DIS IN [facility] [address] [place] [address] END OF REPORT
== END 2019-05-22 17:51 | DRG 871 ==
LOC: D.ER 04:30 → OBSVTIME 05:23 → D.MS 05:23
PROVIDERS: Family Medicine; ADMIT Family Medicine; ATTEND Family Medicine
DX: A41.9 Sepsis, unspecified organism (principal); N17.0 Acute kidney failure with tubular necrosis; I21.A1 Myocardial infarction type 2; L03.116 Cellulitis of left lower limb; I89.0 Lymphedema, not elsewhere classified; D64.9 Anemia, unspecified; E87.6 Hypokalemia; I10 Essential (primary) hypertension; I25.10 Atherosclerotic heart disease of native coronary artery without angina pectoris; J44.9 Chronic obstructive pulmonary disease, unspecified; K21.9 Gastro-esophageal reflux disease without esophagitis; G25.0 Essential tremor; K59.09 Other constipation

== ENCOUNTER 2019-05-22 16:10 | Inpatient (IN) | payer MEDICARE, OTHER ==
[~2019-05-22] VITALS: Ht 162.6 cm; Wt 70.8 kg
[2019-05-22 19:51] VITALS: BP 162/61
[2019-05-22 20:29] VITALS: BP 162/61; BMI 26.9
[2019-05-23 06:12] LABS: BASOPHILS 0.3 % (0-2); EOSINOPHILS 1.2 % (0-7); HEMATOCRIT 32.6 % (36.0-48.0); HEMOGLOBIN 10.2 g/dL (12-16); IMMATURE GRANULOCYTES 1.3 % (0-5); MCH 26.5 pg (26.0-34.0); MCHC 31.3 g/dL (31.0-37.0); MCV 84.7 fL (80.0-100.0); MEAN PLATELET VOLUME 9.1 fL (7.4-10.4); MONOCYTES 8.3 % (2-11); NEUTROPHILS 76.9 % (40-80); RBC 3.85 10x6/uL (4.00-5.40); RDW 13.9 % (11.5-14.5); WBC 9.2 10x3/uL (4.8-10.8)
[2019-05-23 06:27] LABS: ANION GAP 14.4 mmol/L (8-16); CARBON DIOXIDE 25.2 mmol/L (21.0-32.0); CREATININE - SERUM 1.3 mg/dL (0.6-1.3); PLATELET COUNT 367 10x3/uL (130-400); POTASSIUM - SERUM 3.6 mmol/L (3.5-5.1)
[2019-05-23 08:00] VITALS: BP 144/59
[2019-05-23 13:59] VITALS: Ht 162.6 cm; Wt 70.8 kg
[2019-05-23 20:46] VITALS: BP 132/59
[2019-05-24 07:50] VITALS: BP 123/53
[2019-05-24 19:42] VITALS: BP 108/46
[2019-05-25 08:00] VITALS: BP 95/39
[2019-05-26 01:10] VITALS: BP 120/48
[2019-05-26 08:10] VITALS: BP 130/55
[2019-05-26 08:19] LABS: BASOPHILS 0.3 % (0-2); EOSINOPHILS 1.6 % (0-7); HEMATOCRIT 32.9 % (36.0-48.0); HEMOGLOBIN 9.9 g/dL (12-16); IMMATURE GRANULOCYTES 0.8 % (0-5); LYMPHOCYTES 12.1 % (15-50); MCH 26.1 pg (26.0-34.0); MCHC 30.1 g/dL (31.0-37.0); MCV 86.6 fL (80.0-100.0); MEAN PLATELET VOLUME 8.8 fL (7.4-10.4); MONOCYTES 6.8 % (2-11); NEUTROPHILS 78.4 % (40-80); WBC 10.7 10x3/uL (4.8-10.8)
[2019-05-26 08:20] LABS: PLATELET COUNT 460 10x3/uL (130-400)
[2019-05-26 08:24] LABS: ANION GAP 9.5 mmol/L (8-16); CALCIUM 8.7 mg/dL (8.5-10.1); CARBON DIOXIDE 30.2 mmol/L (21.0-32.0); CREATININE - SERUM 1.4 mg/dL (0.6-1.3); POTASSIUM - SERUM 3.7 mmol/L (3.5-5.1)
[2019-05-26 20:11] VITALS: BP 135/53
[2019-05-27 08:57] VITALS: BP 135/48
[2019-05-27 12:22] VITALS: BP 135/48
[2019-05-27 20:00] VITALS: BP 103/43
[2019-05-28 07:16] LABS: BASOPHILS 0.5 % (0-2); EOSINOPHILS 1.8 % (0-7); HEMATOCRIT 31.9 % (36.0-48.0); HEMOGLOBIN 9.4 g/dL (12-16); IMMATURE GRANULOCYTES 0.6 % (0-5); MCH 25.8 pg (26.0-34.0); MCHC 29.5 g/dL (31.0-37.0); MCV 87.4 fL (80.0-100.0); MEAN PLATELET VOLUME 8.8 fL (7.4-10.4); MONOCYTES 8.9 % (2-11); NEUTROPHILS 66.2 % (40-80); PLATELET COUNT 445 10x3/uL (130-400); RBC 3.65 10x6/uL (4.00-5.40); RDW 13.9 % (11.5-14.5); WBC 8.2 10x3/uL (4.8-10.8)
[2019-05-28 07:31] LABS: ANION GAP 9.2 mmol/L (8-16); CALCIUM 8.5 mg/dL (8.5-10.1); CARBON DIOXIDE 31.8 mmol/L (21.0-32.0); CREATININE - SERUM 1.5 mg/dL (0.6-1.3)
[2019-05-28 08:00] VITALS: BP 96/41
[2019-05-28 21:08] VITALS: BP 111/43
[2019-05-29 08:00] VITALS: BP 100/47
[2019-05-29 19:47] VITALS: BP 129/48
[2019-05-30 07:09] LABS: BASOPHILS 0.5 % (0-2); EOSINOPHILS 2.1 % (0-7); HEMATOCRIT 32.2 % (36.0-48.0); HEMOGLOBIN 9.7 g/dL (12-16); IMMATURE GRANULOCYTES 0.6 % (0-5); LYMPHOCYTES 24.5 % (15-50); MCH 26.2 pg (26.0-34.0); MCHC 30.1 g/dL (31.0-37.0); MEAN PLATELET VOLUME 8.9 fL (7.4-10.4); NEUTROPHILS 63.3 % (40-80); PLATELET COUNT 455 10x3/uL (130-400); RDW 13.9 % (11.5-14.5); WBC 8.2 10x3/uL (4.8-10.8)
[2019-05-30 07:24] LABS: ANION GAP 10.1 mmol/L (8-16); CALCIUM 8.5 mg/dL (8.5-10.1); CARBON DIOXIDE 30.7 mmol/L (21.0-32.0); CREATININE - SERUM 1.4 mg/dL (0.6-1.3); POTASSIUM - SERUM 3.8 mmol/L (3.5-5.1)
[2019-05-30 08:00] VITALS: BP 113/95
[2019-05-31 00:17] VITALS: BP 131/43
[2019-05-31 08:11] VITALS: BP 122/41
[2019-06-01 00:44] VITALS: BP 152/56
[2019-06-01 08:00] VITALS: BP 101/39
[2019-06-01 20:00] VITALS: BP 123/56
[2019-06-02 05:30] LABS: BASOPHILS 0.7 % (0-2); EOSINOPHILS 1.5 % (0-7); HEMATOCRIT 34.5 % (36.0-48.0); HEMOGLOBIN 10.3 g/dL (12-16); IMMATURE GRANULOCYTES 0.5 % (0-5); LYMPHOCYTES 30.3 % (15-50); MCH 25.9 pg (26.0-34.0); MCHC 29.9 g/dL (31.0-37.0); MCV 86.9 fL (80.0-100.0); MEAN PLATELET VOLUME 8.9 fL (7.4-10.4); MONOCYTES 7.3 % (2-11); NEUTROPHILS 59.7 % (40-80); PLATELET COUNT 443 10x3/uL (130-400); RBC 3.97 10x6/uL (4.00-5.40); RDW 13.8 % (11.5-14.5); WBC 7.4 10x3/uL (4.8-10.8)
[2019-06-02 05:37] LABS: ANION GAP 11.9 mmol/L (8-16); CALCIUM 8.7 mg/dL (8.5-10.1); CARBON DIOXIDE 29.1 mmol/L (21.0-32.0); CREATININE - SERUM 1.3 mg/dL (0.6-1.3)
[2019-06-02 08:09] VITALS: BP 123/64
[2019-06-02 20:00] VITALS: BP 98/47
[2019-06-03 08:00] VITALS: BP 115/51
[2019-06-03] MEDS ORDERED: PERCOCET 10-321 EAC1 PO (10:48)
--- NOTE | 2019-06-03 14:47 | RHP ---
PATIENT: SETH MAXWELL MEDICAL RECORD: [id number] ACCOUNT: [id number] LOCATION:[id number] : 44 ADMISSION DATE: 05/22/19 REHABILITATION HISTORY AND PHYSICAL EXAMINATION POST ADMISSION PHYSICIAN EXAMINATION HISTORY OF PRESENT ILLNESS: The patient is a 73-year-old female patient admitted secondary to disuse myopathy. She arrived in the Emergency Room via ambulance after worsening left knee pain. She had had surgery in September. Currently, the pain was unable to bear any weight on it or ambulate. She had a traumatic injury in September of last year for which knee surgery was done after a fall. She had been having chronic pain since then. The patient had orthopedic surgery consult, was found to have severe cellulitis of the left lower extremity and recommended IV therapy of vancomycin and Zosyn. The patient had to have renal dosing. She was followed throughout her stay. She does need a knee replacement at some point. Also, noted to have severe lymphedema and goes to a clinic for treatment. She has been having PT and OT during her stay. She needs to be monitored closely for pain control, electrolyte protocol. Her H&H has been low, so we need to watch her healing cellulitis. She has got electrolyte abnormalities, balance deficits, decreased activity tolerance, decreased range of motion, decreased strength, unsteady gait and balance, fatigues easily, inability to care for herself and these are all reasons that she cannot be discharged home at this time. She lives at home with a friend since her knee surgery in September of 2018. The patient is currently set up for max assist for ADLs and mod assist for mobility. She plans to be able to return home at her prior level of functioning or better. COMORBIDITIES: Include left lower extremity cellulitis, sepsis, normocytic anemia, thrombosis, acute kidney injury, benign tumors, chronic constipation and hard of hearing. PAST MEDICAL HISTORY: Significant for numbness, benign tumors, COPD, acid reflux, constipation, tobacco use. PAST SURGICAL HISTORY: Includes gallbladder, appendectomy, hysterectomy, left knee surgery. ALLERGIES: COUMADIN, PLAVIX AND AN ANTIBIOTIC. CURRENT MEDICATIONS: Include losartan 100 mg daily. She is on chlorthalidone 50 mg daily. She is on amlodipine 10 mg daily, Protonix 40 mg daily, Synthroid 75 mcg daily, Colace 100 mg b.i.d., Pravachol 80 mg at bedtime, Mirapex 3 mg at bedtime, Eliquis 2.5 mg b.i.d., Percocet 10/325 one tab every 4 hours p.r.n., and MiraLax 17 grams in 8 ounces of water daily. HABITS: Does have a history of tobacco use. FAMILY HISTORY: Noncontributory. SOCIAL HISTORY: The patient hopes to return back home and get back to her prior level of functioning. REVIEW OF SYSTEMS: GENERAL: Does complain of some weakness and fatigue. HEENT: Denies cold, cough, or congestion. HISTORY AND PHYSICAL [id number] SETH MAXWELL CARDIOVASCULAR: Denies chest pain. PHYSICAL EXAMINATION: VITAL SIGNS: Stable, afebrile. GENERAL: An elderly female in no acute distress, alert upon exam. HEENT: Normocephalic and atraumatic. Mucosa moist. NECK: Supple. No lymphadenopathy. LUNGS: Clear at this time. HEART: Regular rate and rhythm. ABDOMEN: Soft, benign and nondistended. Positive bowel sounds times 4. EXTREMITIES: No clubbing or cyanosis. She does have some lymphedema noted and she has some normal postop swelling. NEUROLOGIC: She does have proximal muscle weakness. LABORATORY DATA: Her white count is 9.2, H&H of 10 and 32 and platelet count is 367. Sodium 137, potassium 3.6, BUN and creatinine of 16 and 1.3 and blood sugar is noted to be 89. ASSESSMENT: This is a 73-year-old female patient admitted to rehab with a working diagnosis of disuse myopathy. The patient has potential to make improvement. We instituted the following multidisciplinary therapies including, but not limited to physical, occupational, respiratory, speech, nutritional services, prosthetics and orthotics. Given her complex medical condition and risks for more complications, rehabilitation services cannot be provided at a low level of care such as alf facility. PLAN: 1. Admit to [facility] for intensive inpatient therapy to include the following disciplines; A. Physical therapy to improve gait, all transfer skills and bed mobility to a modified independent level. B. Occupational therapy to improve activities of daily level. C. Case management to assist with discharge planning and placement options. D. Nutrition to assist with nutritional needs. E. Rehabilitation nursing to assist in monitoring the patient's underlying medical conditions and to assist with any type of bowel or bladder management. 2. The patient's current medication and medical care will be continued. 3. The patient will be placed on standard fall precautions. 4. The patient's estimated length of stay is approximately 7-10 days. 5. We will discuss this patient during care team staff meeting this week. TRANSINT:[id number] Voice Confirmation ID: [id number] DOCUMENT ID: [id number] OTIS notes whether there has been none or any medical/functional change since admission: - No change since the PAS OTIS attests patient continues to be appropriate for IRF: - Remains appropriate for the ARU HISTORY AND PHYSICAL [id number] SETH MAXWELL,YUE HUMMEL MD at 1447 CC: [id number] DICTATION DATE: 05/23/19916 PIPE LINE GAUGER: 05/23/19 1537 ADM IN [place] [id number] [place] [address]
== END 2019-06-03 11:30 | DRG 91 ==
LOC: D.REHAB 16:10
PROVIDERS: ADMIT Emergency Medicine; ATTEND Emergency Medicine
DX: G72.89 Other specified myopathies (principal); I21.A1 Myocardial infarction type 2; S82.142A Displaced bicondylar fracture of left tibia, initial encounter for closed fracture; N17.9 Acute kidney failure, unspecified; L03.116 Cellulitis of left lower limb; J44.1 Chronic obstructive pulmonary disease with (acute) exacerbation; I89.0 Lymphedema, not elsewhere classified; D64.9 Anemia, unspecified; E87.6 Hypokalemia; I10 Essential (primary) hypertension; I25.10 Atherosclerotic heart disease of native coronary artery without angina pectoris; K21.9 Gastro-esophageal reflux disease without esophagitis; X58.XXXA Exposure to other specified factors, initial encounter

== ENCOUNTER → 2019-07-03 18:11 | Outpatient (CLI) | payer MEDICARE, OTHER ==
[2019-05-23 13:59] VITALS: BMI 26.7
[~2019-07-03 18:11] MED LIST changes: +PERCOCET 10-321 EAC1 PO
== END | disposition home or self-care (01) ==
LOC: D.LABREF 18:11
PROVIDERS: ATTEND Orthopaedic Surgery
DX: M17.12 Unilateral primary osteoarthritis, left knee (principal)

== ENCOUNTER 2019-07-08 19:16 | Inpatient (IN) | payer MEDICARE, OTHER ==
[~2019-07-08] VITALS: Ht 162.6 cm; Wt 72.3 kg
[2019-07-15] MEDS ORDERED: ULTRAM50 MG PO (16:32)
[2019-07-15] MEDS ORDERED: BACLOFEN10 MG PO (16:32)
[2019-07-16 11:34] LABS: BASOPHILS 0.2 % (0-2); EOSINOPHILS 0.8 % (0-7); HEMATOCRIT 37.6 % (36.0-48.0); HEMOGLOBIN 11.8 g/dL (12-16); IMMATURE GRANULOCYTES 0.1 % (0-5); LYMPHOCYTES 21.1 % (15-50); MCH 26.9 pg (26.0-34.0); MCHC 31.4 g/dL (31.0-37.0); MCV 85.8 fL (80.0-100.0); MEAN PLATELET VOLUME 9.4 fL (7.4-10.4); MONOCYTES 6.5 % (2-11); NEUTROPHILS 71.3 % (40-80); RBC 4.38 10x6/uL (4.00-5.40); RDW 15.8 % (11.5-14.5); WBC 9.3 10x3/uL (4.8-10.8)
[2019-07-16 11:41] LABS: ANION GAP 11.3 mmol/L (8-16); APTT 25.9 SECONDS (22.8-39.4); CALCIUM 9.2 mg/dL (8.5-10.1); CARBON DIOXIDE 30.1 mmol/L (21.0-32.0); CREATININE - SERUM 1.6 mg/dL (0.6-1.3); INR 0.95 (0.85-1.17); POTASSIUM - SERUM 4.4 mmol/L (3.5-5.1); PROTIME 12.6 SECONDS (11.6-15.0)
[2019-07-16 11:42] LABS: PLATELET COUNT 253 10x3/uL (130-400)
[2019-07-16 12:41] LABS: BACTERIA FEW /hpf (NEGATIVE); BILIRUBIN NEGATIVE (NEGATIVE); GLUCOSE NEGATIVE (NEGATIVE); KETONE NEGATIVE (NEGATIVE); NITRITE NEGATIVE (NEGATIVE); RED CELLS - URINE RARE /hpf (0-5); SPECIFIC GRAVITY 1.015 (1.005-1.020)
[2019-07-16 12:42] LABS: HYALINE CAST 0-5 /lpf (NONE SEEN); WHITE CELLS - URINE 0-5 /hpf (NEGATIVE)
[2019-07-22 10:15] VITALS: BP 145/54; Ht 162.6 cm; Wt 72.3 kg
--- NOTE | 2019-07-22 10:20 | NUR ---
PEPCID 20 MG IV GIVEN TO PT PER ORDER. MEDICATION WILL NOT SCAN
--- NOTE | 2019-07-22 13:45 | NUR ---
PT PROCEDURE CANCELLED PER DR COLÓN. PT FAMILY CALLED AND INFORMED.
--- NOTE | 2019-07-22 13:49 | NUR ---
PT RESTING COMFORTABLY, WAITING ON RIDE HOME. FOLLOW UP APPOINTMENT MADE.
--- NOTE | 2019-07-22 14:07 | NUR ---
PT FAMILY AT BEDSIDE,EDUCATED ON FOLLOW UP APPT IN 2 WEEKS. PT AND FAMILY VERBALIZE UNDERSTANDING. PT IV REMOVED.
--- NOTE | 2019-07-22 14:12 | NUR ---
PT LEAVING OPS AT THIS TIME WITH FAMILY VIA WC, DAVIAN NOTED.
--- NOTE | 2019-07-22 14:27 | NUR ---
1100-dr prajapati here to yun[facility] patient for surgery. informed of increased pain and new pain in right leg. notified of swelling and redness. made visible for inspection.
== END 2019-07-22 14:12 | disposition home or self-care (01) | DRG 948 ==
LOC: D.SDCHOLD 07-16 10:00
PROVIDERS: ADMIT Orthopaedic Surgery; ATTEND Orthopaedic Surgery
DX: R60.0 Localized edema (principal); Z53.9 Procedure and treatment not carried out, unspecified reason; F17.200 Nicotine dependence, unspecified, uncomplicated; I73.9 Peripheral vascular disease, unspecified; J44.9 Chronic obstructive pulmonary disease, unspecified